=== PATIENT | male | born 1965 | race Caucasian/White ===

== ENCOUNTER → 2021-01-05 09:20 | Outpatient (BNVA) | payer MEDICARE, SELFPAY | PROVIDERS: Visit Provider Family Medicine | DX: Z13.6 Encounter for screening for cardiovascular disorders (principal); R73.09 Other abnormal glucose; R76.8 Other specified abnormal immunological findings in serum; R35.1 Nocturia; I73.9 Peripheral vascular disease, unspecified; F17.219 Nicotine dependence, cigarettes, with unspecified nicotine-induced disorders | CPT/HCPCS: 80053; 80061; 83036; 84153; 85025; 86803; 87522 ==

== ENCOUNTER 2021-04-30 11:22 | Emergency (ER) | payer MEDICARE, SELFPAY ==
[2021-04-30 11:23] VITALS: BP 89/57; PULSE 139; RESP 20; TEMP 37.2; O2SAT 95
--- NOTE | 2021-04-30 11:32 | CTR_ITS ---
PROCEDURE INFORMATION: Exam: CTA Angiogram of the Abdominal Aorta and Bilateral Lower Extremities (Run-off) With IV Contrast Exam date and time: 04/30/2021 11:32 AM Age: 55 years old Clinical indication: Other: Leg bleeding; Prior surgery; Surgery type: Bleeding, from femoral sheath from stent last month; Additional info: Eval for R femoral pseudoaneurysmal hematoma/bleeding, prior femoral sheath from stent last month TECHNIQUE: Imaging protocol: CT angiogram of the abdominal aorta, pelvis and bilateral lower extremities with IV iodinated contrast. 3D rendering (Not supervised by radiologist): MIP and/or 3D reconstructed images were created by the technologist. Total images: 1142 Radiation optimization: All CT scans at this facility use at least one of these dose optimization techniques: automated exposure control; mA and/or kV adjustment per patient size (includes targeted exams where dose is matched to clinical indication); or iterative reconstruction. Contrast material: OMNI 350; Contrast volume: 95 ml; Contrast route: INTRAVENOUS (IV); COMPARISON: No relevant prior studies available. RADIATION DOSE METRICS: Total DLP (mGy-cm): 1303.97 FINDINGS: Aorta: No aortic aneurysm. No aortic dissection. Celiac trunk and mesenteric arteries: No occlusion or significant stenosis. Renal arteries: No occlusion or significant stenosis. Right iliac arteries: No occlusion or significant stenosis. Right femoral/popliteal arteries: Postsurgical changes noted at the left groin with focal enlargement just proximal to vascular grafts measuring 1.3 cm. Adjacent soft tissue thickening, subcutaneous emphysema and vascular clips are seen present. Surgical tract tract extends to overlying skin surface in this area. Multiple unopacified tubular structures representing femoral grafts are present extending from the right groin to the right popliteal region suggesting thrombosed grafts. Adjacent fluid and or hemorrhage is seen tracking with the structures as well as small amounts of air. There is a small irregular area of increased density adjacent to the posteromedial graft in the upper thigh which is felt to represent contrast extravasation, series 3 image 202 to 210, which is being supplied by small branches from the right deep femoral artery. Opacification of right deep femoral artery branches which supply collateral flow and reconstitute a distal small popliteal artery. Right infrapopliteal arteries: No occlusion or significant stenosis. Left iliac arteries: No occlusion or significant stenosis. Left femoral/popliteal arteries: No occlusion or significant stenosis. Left infrapopliteal arteries: No occlusion or significant stenosis. Other arteries: Moderate atherosclerotic disease is evident. Lungs: Trace bibasilar atelectasis or scar. Liver: No mass. Gallbladder and bile ducts: Unremarkable. No calcified stones. No ductal dilation. Pancreas: Unremarkable. No mass. No ductal dilation. Spleen: Normal. No splenomegaly. Adrenals: Normal. No mass. Kidneys and ureters: Normal. No mass. Stomach and bowel: Unremarkable. No obstruction. No mucosal thickening. Appendix: No evidence of appendicitis. Urinary bladder: Unremarkable. No mass. Reproductive: The prostate gland contains benign-appearing calcifications that are likely parenchymal. Intraperitoneal space: Unremarkable. No free air. No significant fluid collection. Lymph nodes: No lymphadenopathy. Bones/joints: No acute fracture. No dislocation. Other findings: Status post aortic bilateral iliac stent grafts. This is opacified. CT/CT angio abd aorta runof 38450 IMPRESSION: 1. Postsurgical changes noted at the left groin with focal enlargement just proximal to vascular grafts measuring 1.3 cm. Adjacent soft tissue thickening, subcutaneous emphysema and vascular clips are seen present. Surgical tract tract extends to overlying skin surface in this area. 2. Multiple unopacified tubular structures representing femoral grafts are present extending from the right groin to the right popliteal region suggesting thrombosed grafts. Adjacent fluid and or hemorrhage is seen tracking with the structures as well as small amounts of air. There is a small irregular area of increased density adjacent to the posteromedial graft in the upper thigh which is felt to represent contrast extravasation, series 3 image 202 to 210, which is being supplied by small branches from the right deep femoral artery. 3. Opacification of right deep femoral artery branches which supply collateral flow and reconstitute a distal small popliteal artery.
[2021-04-30 11:42] VITALS: BP 119/76; PULSE 140; O2SAT 96
[2021-04-30 11:44] LABS: Basophils # 0.1 10^3/uL (0.0-0.1); Basophils % 0.3 %; Eosinophils # 0.1 10^3/uL (0.0-0.8); Eosinophils % 0.2 %; Hematocrit 32.6 % (42.0-52.0); Hemoglobin 11.1 g/dL (11.7-16.6); Lymphocytes # 0.9 10^3/uL (0.8-4.8); Lymphocytes % 2.9 %; Mean Corpuscular Hemoglobin 29.1 pg (28.0-34.0); Mean Corpuscular Volume 85.6 fl (80-94); Mean Platelet Volume 10.9 fL (7.4-10.4); Monocytes # 1.7 10^3/uL (0.2-0.9); Monocytes % 5.4 %; Neutrophils # 28.35 10^3/uL (1.8-7.7); Neutrophils % 90.4 %; Nucleated Red Blood Cells % 0 %; Platelet Count 357 10^3/cmm (130-400); Red Blood Count 3.81 10^6/uL (4.1-5.3); Red Cell Distribution Width 13.6 % (12.1-15.1)
--- NOTE | 2021-04-30 11:46 | ED_ITS ---
HPI - General Adult General: Chief complaint: Wound/Laceration Stated complaint: BLEEDING FROM FEMORAL SITE Time Seen by Provider: 04/30/21 11:23 History of Present Illness: Patient is a 55-year-old male with a history of PAD angioplasty with R femoral sheath placement at [facility] in 03/2021 presents emergency room with concerns of right groin bleeding x1 day. Patient tells me this morning at 8 AM when he was sitting down suddenly his right groin started bleeding heavily. Patient tells me that he previously had a femoral sheath in the right groin. The bleeding went on for about an hour before it stopped. Patient called EMS by time EMS arrived at 11 AM, the bleeding has stopped. Patient was noted to be tachycardic to the 150s in route by EMS. Onset:8am Duration:1 hr Location:home Severity:severe Associated symptoms: Deny chest pain, dyspnea, nausea, rash, palpitations or vomiting Review of Systems Const: Denies: fever(s) or chills Eyes: Denies: change in vision ENMT: Denies: mouth pain Card: Denies: chest pain or palpitations Resp: Denies: dyspnea or non-productive cough GI: Denies: abdominal pain, nausea, vomiting or diarrhea : Denies: dysuria Musc: Reports: other (+R groin bleeding); Denies: extremity pain Skin/Breast: Denies: rash or new lesions Neuro: Denies: weakness in extremities Psych: Reports: other (Normal mood) Henri/Lymph: Denies: easy bruising PFSH ED PFSH: Medical History Elevated hemoglobin A1c Hepatitis C antibody test positive PAD (peripheral artery disease) Restless leg syndrome Surgical History S/P peripheral artery angioplasty Family History Mother Diabetes Heart disease Father Cancer esophageal cancer Social History Smoking and tobacco status: current every day smoker Second hand smoke exposure: No Alcohol intake: former Adopted: No Caregiver/support person: No Lives independently: Yes Housing: House Marital status: Number of children: 1 Highest education level completed: 11th Grade service: No Current occupational status: disabled Pets and animals: Yes Pets & animals: dog(s) History of recent travel: No Current gender identity: Male Physical Exam Const: COMMON NORMALS: alert HENMT: COMMON NORMALS: atraumatic HEAD & SCALP: atraumatic MOUTH: moist mucous membranes not abnormal Eye: COMMON NORMALS: EOMs intact bilaterally and conjunctivae normal CONJUNCTIVA: Yes conjunctivae normal Neck/C-Spine: COMMON NORMALS: full ROM and supple Resp: COMMON NORMALS: normal respiratory effort and clear to auscultation bilaterally AUSCULTATION: clear to auscultation bilaterally Cardio: RATE: tachycardic GI: COMMON NORMALS: Soft to palpation and non-tender PALPATION: Yes Soft to palpation Extremity: COMMON NORMALS: full ROM OTHER: +R groin/inner groin sites with clots, no active bleeding or palpable hematoma Neuro: SENSORIUM/ORIENTATION: Yes alert MOTOR EXAM: No Abnormal motor strength present and Other motor observations present (no focal motor deficits) Psych: COMMON NORMALS: speech normal SPEECH: Yes normal speech MOOD & AFFECT: Yes euthymic mood Procedures Laceration Laceration 1: Site: other (R groin) Side (If applicable): right Size (cm): 2 Description: other (skin erosion with clots on multiple sites) Depth: simple, single layer Local Anesthetic: lidocaine 1% and with epi Amount of anesthesia used (mL): 5 Pre-repair: wound explored and irrigated extensively Skin layer closed with: other (prolene) Size (cm): other (1-0) Number of sutures: 3 Technique: other (figures of eight on the site of previous bleeding) Course Vital Signs: Vital signs: Vital Signs Temperature 99.6 F 04/30/21 14:09 Pulse Rate 95 04/30/21 15:47 Respiratory Rate 20 H 04/30/21 11:23 Blood Pressure 96/52 04/30/21 15:47 Pulse Oximetry 96 04/30/21 15:47 [facility] - General Adult Medical Decision Making Patient is a 55-year-old male with a history of recent femoral sheath placement at [facility] presenting to emergency room with delayed bleeding. Arrival, patient noted to be tachycardic to the 140s. He is afebrile by oral temperature and rectal temperature With significant delay bleeding, decision was made to meet evaluate for H&H. Patient is noted to have a hemoglobin 11.1 with a baseline of 16.1. Patient is also found to have white count of 31.3. In the setting of tachycardia, this could be early signs of sepsis concerning for possible infected sheath vs reactive leukocytosis to delayed hemorrhage from femoral sheath malfunction. Workup: CBC, BMP, PT/PTT/INR, fibrinogen, CTA run off Intervention: 3L of IVF, vancomycin, cefepime, TXA and aminocapric acid Given concerns for possible rebleeding, decision was made in conjunction with patient to close the skin site of previous bleeding. I placed 3 figure of 8 sutures at the site of the femoral sheath. Patient is noted to have a white count of 30 K in the setting of tachycardia, evaluate for graft infection versus thrombosis.CTA of the lower extremity showed grafts thrombosis with few foci of air concerning for possible sheath infection. Patient received vancomycin, cefepime, and clindamycin. Patient will be transferred to outside hospital for further management of sheath infection with thrombosis. Case was discussed with Dr. Colon from [facility] vascular surgery team who agreed with the transfer to [facility] for evaluation of femoral sheath infection and thrombosis. Disposition: Transfer to outside hospital Lab Data : 04/30/21 11:06 04/30/21 11:06 Radiology Impressions Aorta w/Runoff CTA 04/30/21 11:32 IMPRESSION: 1. Postsurgical changes noted at the left groin with focal enlargement just proximal to vascular grafts measuring 1.3 cm. Adjacent soft tissue thickening, subcutaneous emphysema and vascular clips are seen present. Surgical tract tract extends to overlying skin surface in this area. 2. Multiple unopacified tubular structures representing femoral grafts are present extending from the right groin to the right popliteal region suggesting thrombosed grafts. Adjacent fluid and or hemorrhage is seen tracking with the structures as well as small amounts of air. There is a small irregular area of increased density adjacent to the posteromedial graft in the upper thigh which is felt to represent contrast extravasation, series 3 image 202 to 210, which is being supplied by small branches from the right deep femoral artery. 3. Opacification of right deep femoral artery branches which supply collateral flow and reconstitute a distal small popliteal artery. ADDENDUM: 04/30/21 1347 THIS REPORT CONTAINS FINDINGS THAT MAY BE CRITICAL TO PATIENT CARE. The findings were verbally communicated via telephone conference at 1:46 PM METEOROLOGICAL TECHNICIAN on 04/30/2021 with PANCHO CRUZ. The findings were acknowledged and understood. Laboratory Results WBC 31.3 10^3/uL (4.0-10.0) H* 04/30/21 11:06 RBC 3.81 10^6/uL (4.1-5.3) L 04/30/21 11:06 Hgb 11.1 g/dL (11.7-16.6) L 04/30/21 11:06 Hct 32.6 % (42.0-52.0) L 04/30/21 11:06 MCV 85.6 fl (80-94) 04/30/21 11:06 MCH 29.1 pg (28.0-34.0) 04/30/21 11:06 MCHC 34.0 g/dL (30.0-36.0) 04/30/21 11:06 RDW 13.6 % (12.1-15.1) 04/30/21 11:06 Plt Count 357 10^3/cmm (130-400) 04/30/21 11:06 MPV 10.9 fL (7.4-10.4) H 04/30/21 11:06 Neut % (Auto) 90.4 % 04/30/21 11:06 Lymph % (Auto) 2.9 % 04/30/21 11:06 Crawford % (Auto) 5.4 % 04/30/21 11:06 Eos % (Auto) 0.2 % 04/30/21 11:06 Baso % (Auto) 0.3 % 04/30/21 11:06 Neut # (Auto) 28.35 10^3/uL (1.8-7.7) H 04/30/21 11:06 Lymph # (Auto) 0.9 10^3/uL (0.8-4.8) 04/30/21 11:06 Crawford # (Auto) 1.7 10^3/uL (0.2-0.9) H 04/30/21 11:06 Eos # (Auto) 0.1 10^3/uL (0.0-0.8) 04/30/21 11:06 Baso # (Auto) 0.1 10^3/uL (0.0-0.1) 04/30/21 11:06 Nucleated RBC % (auto) 0 % 04/30/21 11:06 Nucleated RBCs # 0.0 /100WBC 04/30/21 11:06 PT 14.80 SECONDS (12.1-14.9) 04/30/21 11:06 INR 1.13 (0.8-1.2) 04/30/21 11:06 APTT 34.5 SECONDS (23.9-36.7) 04/30/21 11:06 Fibrinogen 886 mg/dL (174-498) H 04/30/21 11:06 Sodium 134 mmol/L (136-145) L 04/30/21 11:06 Potassium 3.4 mmol/L (3.5-5.1) L 04/30/21 11:06 Chloride 100 mmol/L (98-107) 04/30/21 11:06 Carbon Dioxide 20 mmol/L (22-29) L 04/30/21 11:06 Anion Gap 17.4 (5-19) 04/30/21 11:06 BUN 10 mg/dL (6-20) 04/30/21 11:06 Creatinine 0.7 mg/dL (0.7-1.2) 04/30/21 11:06 GFR Calculation 116.2 mL/min (90-130) 04/30/21 11:06 Glucose 141 mg/dL (65-115) H 04/30/21 11:06 Calculated Osmolality 279 mOsm/kg (285-295) L 04/30/21 11:06 Lactate 2.6 mmol/L (0.5-2.2) H 04/30/21 13:14 Calcium 8.4 mg/dL (8.5-10.5) L 04/30/21 11:06 SARS-CoV-2 Ag (Rapid) Negative (Negative) 04/30/21 13:11 Imaging Data Other Imaging: Radiologist's impression: [address] [place] [address] CT Scan Report Signed Patient: Jeison Hart Unit #: [id number] : 1965 Age/Sex: 55 / M ADM Date: 04/30/21 Loc: ER Room/Bed: Attending Dr: Ordering Provider/Ordering MD: Pancho Cruz MD Date of Service: 04/30/21 Procedure(s): CT angio abd aorta runof 80508 Accession Number(s): [id number] Report Number: [id number] PROCEDURE INFORMATION: Exam: CTA Angiogram of the Abdominal Aorta and Bilateral Lower Extremities (Run-off) With IV Contrast Exam date and time: 04/30/2021 11:32 AM Age: 55 years old Clinical indication: Other: Leg bleeding; Prior surgery; Surgery type: Bleeding, from femoral sheath from stent last month; Additional info: Eval for R femoral pseudoaneurysmal hematoma/bleeding, prior femoral sheath from stent last month TECHNIQUE: Imaging protocol: CT angiogram of the abdominal aorta, pelvis and bilateral lower extremities with IV iodinated contrast. 3D rendering (Not supervised by radiologist): MIP and/or 3D reconstructed images were created by the technologist. Total images: 1142 Radiation optimization: All CT scans at this facility use at least one of these dose optimization techniques: automated exposure control; mA and/or kV adjustment per patient size (includes targeted exams where dose is matched to clinical indication); or iterative reconstruction. Contrast material: OMNI 350; Contrast volume: 95 ml; Contrast route: INTRAVENOUS (IV);? COMPARISON: No relevant prior studies available. RADIATION DOSE METRICS: Total DLP (mGy-cm): 1303.97 FINDINGS: Aorta: No aortic aneurysm. No aortic dissection.? Celiac trunk and mesenteric arteries: No occlusion or significant stenosis.? Renal arteries: No occlusion or significant stenosis.? Right iliac arteries: No occlusion or significant stenosis.? Right femoral/popliteal arteries: Postsurgical changes noted at the left groin with focal enlargement just proximal to vascular grafts measuring 1.3 cm. Adjacent soft tissue thickening, subcutaneous emphysema and vascular clips are seen present. Surgical tract tract extends to overlying skin surface in this area. Multiple unopacified tubular structures representing femoral grafts are present extending from the right groin to the right popliteal region suggesting thrombosed grafts. Adjacent fluid and or hemorrhage is seen tracking with the structures as well as small amounts of air. There is a small irregular area of increased density adjacent to the posteromedial graft in the upper thigh which is felt to represent contrast extravasation, series 3 image 202 to 210, which is being supplied by small branches from the right deep femoral artery. Opacification of right deep femoral artery branches which supply collateral flow and reconstitute a distal small popliteal artery. Right infrapopliteal arteries: No occlusion or significant stenosis.? Left iliac arteries: No occlusion or significant stenosis.? Left femoral/popliteal arteries: No occlusion or significant stenosis.? Left infrapopliteal arteries: No occlusion or significant stenosis.? Other arteries: Moderate atherosclerotic disease is evident. Lungs: Trace bibasilar atelectasis or scar. Liver: No mass. Gallbladder and bile ducts: Unremarkable. No calcified stones. No ductal dilation.? Pancreas: Unremarkable. No mass. No ductal dilation.? Spleen: Normal. No splenomegaly.? Adrenals: Normal. No mass.? Kidneys and ureters: Normal. No mass.? Stomach and bowel: Unremarkable. No obstruction. No mucosal thickening.? Appendix: No evidence of appendicitis.? Urinary bladder: Unremarkable. No mass.? Reproductive: The prostate gland contains benign-appearing calcifications that are likely parenchymal. Intraperitoneal space: Unremarkable. No free air. No significant fluid collection.? Lymph nodes: No lymphadenopathy. Bones/joints: No acute fracture. No dislocation.? Other findings: Status post aortic bilateral iliac stent grafts. This is opacified. CT/CT angio abd aorta runof 22766 IMPRESSION: 1. Postsurgical changes noted at the left groin with focal enlargement just proximal to vascular grafts measuring 1.3 cm. Adjacent soft tissue thickening, subcutaneous emphysema and vascular clips are seen present. Surgical tract tract extends to overlying skin surface in this area. 2. Multiple unopacified tubular structures representing femoral grafts are present extending from the right groin to the right popliteal region suggesting thrombosed grafts. Adjacent fluid and or hemorrhage is seen tracking with the structures as well as small amounts of air. There is a small irregular area of increased density adjacent to the posteromedial graft in the upper thigh which is felt to represent contrast extravasation, series 3 image 202 to 210, which is being supplied by small branches from the right deep femoral artery. 3. Opacification of right deep femoral artery branches which supply collateral flow and reconstitute a distal small popliteal artery. ? Dictated By: Jayden Bolaños MD Signed By: Jayden Bolaños MD Signed Date/Time: 04/30/21 0846 DD/ 1132 Discharge Plan Discharge Patient Disposition: Transfer to ED Clinical Impression: Bleeding, Infection of graft, Hemorrhage due to vascular prosthetic devices, implants and grafts, initial encounter Condition: Stable Prescriptions: No Action aspirin 81 mg tablet,chewable 81 mg PO DAILY 0RF gabapentin 300 mg capsule 300 mg PO BID 0RF clopidogrel 75 mg tablet 75 mg PO DAILY 0RF Coding Level of Care Code ED Ip Litigation Associate for Gifty Fwd Exam Comprehensive
--- NOTE | 2021-04-30 11:49 | ECG_ITS ---
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
[2021-04-30 11:57] LABS: INR 1.13 (0.8-1.2)
[2021-04-30 11:58] LABS: Partial Thromboplastin Time 34.5 SECONDS (23.9-36.7)
[2021-04-30 12:03] LABS: White Blood Count 31.3 10^3/uL (4.0-10.0)
[2021-04-30 12:06] LABS: Anion Gap 17.4 (5-19); Blood Urea Nitrogen 10 mg/dL (6-20); Calcium 8.4 mg/dL (8.5-10.5); Carbon Dioxide 20 mmol/L (22-29); Chloride 100 mmol/L (98-107); Glomerular Filtration Rate 116.2 mL/min (90-130); Glucose 141 mg/dL (65-115); Osmolality Calculated 279 mOsm/kg (285-295); Potassium 3.4 mmol/L (3.5-5.1); Sodium 134 mmol/L (136-145)
[2021-04-30] MEDS: iohexol 350 mg/mL 100 mL Btl IV (12:41)
[2021-04-30] MEDS: sodium chloride 0.9% 1,000 ML 999 ML IV ×3 (12:55→15:09)
[2021-04-30] MEDS: cefepime 1,000 MG in sodium chloride 0.9% (plus) 50 ML 100 MG IV (13:07)
[2021-04-30 13:21] LABS: Fibrinogen 886 mg/dL (174-498)
[2021-04-30 13:38] LABS: Lactate (Lactic Acid level) 2.6 mmol/L (0.5-2.2)
[2021-04-30] MEDS: vancomycin 1,000 MG in sodium chloride 0.9% 250 ML 250 MG IV (13:48)
[2021-04-30 13:57] LABS: SARS Covid-2 Antigen Negative (Negative)
[2021-04-30] MEDS: clindamycin 600 MG/50 ML PREMIX 100 MG IV (14:03)
[2021-04-30 14:09] VITALS: BP 117/64; PULSE 111; TEMP 37.6; O2SAT 95
[2021-04-30 15:47] VITALS: BP 96/52; PULSE 95; O2SAT 96
[2021-04-30 18:30] VITALS: BP 109/63; PULSE 91; O2SAT 94
[2021-04-30 19:44] VITALS: RESP 18
[2021-04-30] MEDS: morphine 4 mg/mL SDV 1 mL IVP (19:44)
== END 2021-04-30 19:50 ==
PROVIDERS: Emergency Provider Emergency Medicine
DX: T82.838A Hemorrhage due to vascular prosthetic devices, implants and grafts, initial encounter (principal); T82.7XXA Infection and inflammatory reaction due to other cardiac and vascular devices, implants and grafts, initial encounter; Z79.82 Long term (current) use of aspirin; Z79.02 Long term (current) use of antithrombotics/antiplatelets; Z86.19 Personal history of other infectious and parasitic diseases; F17.210 Nicotine dependence, cigarettes, uncomplicated
CPT/HCPCS: 12001; 36415; 75635; 80048; 83605; 85025; 85384; 85610; 85730; 87040; 87426; 93005; 96365; 96367; 96375; 99285; J0692; J2270; J3370; J3490; J7030; J7050; Q9967

== ENCOUNTER 2021-05-11 16:38 | Emergency (ER) | payer MEDICARE, SELFPAY ==
--- NOTE | 2021-05-11 17:00 | W.ED.GENADLT ---
HPI - General Adult General: Chief complaint: General Medical Stated complaint: BLEEDING FROM PICC LINE Time Seen by Provider: 05/11/21 16:59 History of Present Illness: Mr Hart is a 56-year-old gentleman with complex past history. He has a history of femoropopliteal bypass with subsequently returning to this emergency department on 04/30/2021 and transferred out when he was found to have thrombosed and infected grafts. He was transferred to [place] and apparently had surgical procedures there to remove the infection. He is currently at a care home facility/rehab facility for continued IV antibiotics through a PICC line. He reports feeling overall improved and denies any medical complaints however was sent here as the facility was unable to get his PICC line to stop bleeding. Endorses that this stopped at about 4 PM. He denies associated pain, lightheadedness, chest pain, shortness of breath, or any sensory/circulatory/motor changes in that extremity. Unclear how much blood loss is estimated though estimated to be mild amount. Course improved with clamping of the tubing no other specific changes in health, exacerbating, relieving factors identified. Onset (ago): minute(s) Severity: mild Review of Systems General: Reports: 10 or more systems reviewed and unremarkable except in HPI and below PFSH ED PFSH: Medical History Elevated hemoglobin A1c Hepatitis C antibody test positive PAD (peripheral artery disease) Restless leg syndrome Surgical History S/P peripheral artery angioplasty Family History Mother Diabetes Heart disease Father Cancer esophageal cancer Social History Smoking and tobacco status: current every day smoker Second hand smoke exposure: No Alcohol intake: former Adopted: No Caregiver/support person: No Lives independently: Yes Housing: House Marital status: Number of children: 1 Highest education level completed: 11th Grade service: No Current occupational status: disabled Pets and animals: Yes Pets & animals: dog(s) History of recent travel: No Current gender identity: Male Physical Exam Const: COMMON NORMALS: alert GENERAL APPEARANCE: cooperative and well developed HENMT: COMMON NORMALS: normocephalic and atraumatic HEAD & SCALP: normocephalic and atraumatic Eye: COMMON NORMALS: conjunctivae normal CONJUNCTIVA: Yes conjunctivae normal SCLERA: sclerae normal Neck/C-Spine: COMMON NORMALS: supple GENERAL: Yes trachea midline Resp: COMMON NORMALS: normal respiratory effort and clear to auscultation bilaterally EFFORT & INSPECTION: Yes able to speak in complete sentences AUSCULTATION: clear to auscultation bilaterally Cardio: COMMON NORMALS: regular rate and regular rhythm RATE: regular rate RHYTHM: regular rhythm OTHER: Distal CMS intact of involved extremity GI: COMMON NORMALS: Soft to palpation PALPATION: Yes Soft to palpation and No Tenderness to palpation present (GI) PERCUSSION: normal to percussion Extremity: NARRATIVE EXTREMITY EXAM: Right groin wound VAC in place. GENERAL: Yes normal exam except as noted and No edema Neuro: COMMON NORMALS: moves all extremities SENSORIUM/ORIENTATION: Yes alert and No Orientation impaired Psych: COMMON NORMALS: mental status grossly normal and Normal thought process present THOUGHT PROCESS: Normal thought process present Course ED course: - Patient was seen and evaluated by me while on EMS cot as no room is available - Vital signs obtained - Initial evaluation notable for acute distress, nontoxic appearance. - I examined the patient's PICC line. There is currently a green antimicrobial Directly attached to the pink end of the tubing. Dressing appears otherwise intact and the patient denies that this has been pulled out at all and does not appear to be pulled out. It appears that the end of the tubing is missing a needleless connector as should be in place. this may have been accidentally removed when disconnecting IV infusion of antibiotics previously. One was placed by staff midwife/apprenticeship director and the line was flushed without recurrent bleeding or apparent complication. - Upon serial reexamination after treatment the patient was improved - Based on patient history, evaluation, labs, and imaging as interpreted the most likely cause of the patient's condition is bleeding from PICC line due to improper removal of needleless connector which was fixed. - The results of ED evaluation were discussed with the patient. I discussedfollowup plan and return precautions. The patient verbalized understanding and felt safe for discharge. - Patient discharged in satisfactory condition back to [facility]. Note: Click bubbles or prepopulated sauer in note writing are used for assistance with data collection and billing and are inherently more limited than narrative and other text portions of this note. Please use narrative for additional clinical history and defer to narrative/free test for any case of contradictory information. If information appears in only free text or click bubble it should be considered present or absent as reported. Please contact note marketing underwriter for clarifications of clinical information or contradictory information. MDM is a brief summary, contradictory or erroneous seeming information should be clarified and full note should be reviewed. Vital Signs: Vital signs: Vital Signs Temperature 98.5 F 05/11/21 17:16 Pulse Rate 102 H 05/11/21 17:16 Respiratory Rate 20 H 05/11/21 17:16 Blood Pressure 134/70 05/11/21 17:16 Pulse Oximetry 99 05/11/21 17:16 MDM - General Adult Medical Decision Making 56-year-old gentleman with complex history currently at rehab facility for IV antibiotics secondary to infected femoropopliteal bypass presenting with bleeding from PICC line. Patient denies complaints and is well-appearing. It appears that the needleless connector was improperly removed and this was not recognized. One was placed and no recurrent bleeding occurred. Catheter flushed without difficulty. Satisfactory for transfer back to rehab facility/SNF. Medical Records I reviewed the patient's medical records. Lab Data I reviewed the patient's lab results. Discharge Plan Discharge Patient Disposition: [facility] Clinical Impression: Bleeding from PICC line Condition: Stable Discharge Orders: Discharge ED (Routine); Ordered 05/11/21 Ordered By: Gideon Betancur Discharge Diet: Usual diet Discharge Activity: Resume usual activity Patient Instructions: How to Care for Your PICC (Peripherally Inserted Central Catheter) (ED) Activity Restrictions/Additional Instructions: Thank you for visiting the emergency department. You were seen and evaluated for bleeding from PICC line. I believe that the PICC line was missing Which was replaced. This likely explains the difficulty with bleeding control. Please care for your PICC line as previously instructed and continue antibiotics. If required, you do need heparin flush as this was not flushed with heparin in the emergency department. Please return to the emergency department for anything that you are concerned about and feel needs emergency department evaluation. Coding Level of Care Code ED Director [employer] [facility] [place]
[2021-05-11 17:16] VITALS: BP 134/70; PULSE 102; RESP 20; TEMP 36.9; O2SAT 99; BMI 24.7
== END 2021-05-11 17:26 ==
PROVIDERS: Emergency Provider Emergency Medicine
DX: T82.838A Hemorrhage due to vascular prosthetic devices, implants and grafts, initial encounter (principal); Z86.19 Personal history of other infectious and parasitic diseases; F17.210 Nicotine dependence, cigarettes, uncomplicated
CPT/HCPCS: 99281

== ENCOUNTER 2021-05-12 15:08 | Outpatient (CLI) | payer MEDICARE, SELFPAY ==
[2021-05-12 16:08] LABS: Vancomycin Trough 42.8 ug/mL (10-15)
== END 2021-05-12 15:09 | disposition home or self-care (01) ==
PROVIDERS: Visit Provider Family Medicine
DX: T82.7XXD Infection and inflammatory reaction due to other cardiac and vascular devices, implants and grafts, subsequent encounter (principal)
CPT/HCPCS: 80202

== ENCOUNTER 2021-05-12 18:01 | Emergency (ER) | payer MEDICARE, SELFPAY ==
[2021-05-12] VITALS (11 sets, daily range): BP systolic 64–125; BP diastolic 47–80; PULSE 112–147; RESP 17–32; TEMP 36.2–36.8; O2SAT 96–100; BMI 26.3
--- NOTE | 2021-05-12 18:14 | CTR_ITS ---
PROCEDURE INFORMATION: Exam: CTA Angiogram of the Abdominal Aorta and Bilateral Lower Extremities (Run-off) With IV Contrast Exam date and time: 05/12/2021 6:14 PM Age: 56 years old Clinical indication: Injury or trauma; Other: Drain pulled out; Bleeding/hemorrhage and wound, open; Without foreign body; Upper leg; Right; Prior surgery; Surgery date: <1 month; Surgery type: Recent vascular procedure and debridement at another facility; Patient HX: Accidentally pulled out drain; Additional info: Post op hemorrhage TECHNIQUE: Imaging protocol: CT angiogram of the abdominal aorta, pelvis and bilateral lower extremities with IV iodinated contrast. 3D rendering (Not supervised by radiologist): MIP and/or 3D reconstructed images were created by the technologist. Radiation optimization: All CT scans at this facility use at least one of these dose optimization techniques: automated exposure control; mA and/or kV adjustment per patient size (includes targeted exams where dose is matched to clinical indication); or iterative reconstruction. Contrast material: VISI 320; Contrast volume: 95 ml; Contrast route: INTRAVENOUS (IV); COMPARISON: CT angio abd aorta runof [id number] 04/30/2021 12:35 PM RADIATION DOSE METRICS: Total DLP (mGy-cm): 1456.49 FINDINGS: Tubes, catheters and devices: A balloon bladder catheter is present. Aorta: No aortic aneurysm. No aortic dissection. Celiac trunk and mesenteric arteries: No occlusion or significant stenosis. Renal arteries: No occlusion or significant stenosis. Right iliac arteries: No occlusion or significant stenosis. Right femoral/popliteal arteries: The previously visualized grafts in the right thigh have been removed and arterial flow to the right lower extremity is through multiple small caliber branches from the profundal femora such and proximal right femoral artery. The right popliteal artery is very small in caliber. Right infrapopliteal arteries: There is a three-vessel runoff with tiny caliber vessels that are weakly enhancing but the dominant flow is from the right tibialis posterior. Left iliac arteries: There is a satisfactory appearance of the bifurcated abdominal aortic stent extending into both common iliac arteries. Left-sided stent also involves the proximal left external iliac artery. Left femoral/popliteal arteries: No occlusion or significant stenosis. Left infrapopliteal arteries: In the left lower leg, there is a three-vessel runoff with flow to the left lower extremity mostly via the posterior tibial artery with tiny caliber peroneal artery and enhancement of only the proximal half of the left tibialis anterior artery. Lungs: There is subpleural atelectasis of the dependent portions of the lungs. There are unchanged multiple calcified granulomas, reticular scarring and mild atelectasis in the lung bases. Unchanged pleural base soft tissue nodules right lung base are noted including the 9 mm nodule series 3, image 4 and the 5 mm nodule image 8. Liver: No mass. Gallbladder and bile ducts: The gallbladder is contracted/decompressed. There is no common bile duct dilation. Pancreas: The pancreas is normal. Spleen: Normal. No splenomegaly. Adrenals: The adrenal glands are normal. Kidneys and ureters: There is no evidence of renal calcifications. There is no evidence of hydronephrosis. Bilateral extrarenal pelves are present. Stomach and bowel: There is moderately excessive colonic stool content. There is no evidence of colitis/diverticulitis. There is no evidence of intestinal perforation or obstruction. Appendix: A normal appendix is identified. Urinary bladder: The bladder is decompressed. Reproductive: The prostate demonstrates moderate nonspecific enlargement. The seminal vesicles are normal. Intraperitoneal space: Unremarkable. No free air. No significant fluid collection. Lymph nodes: No lymphadenopathy. Bones/joints: No acute fracture. No dislocation. 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 There is abundant fluid and induration of the subcutaneous fat right groin compatible with postoperative changes and small hematoma that appears may communicate with the skin surface measuring 5.1 x 3.0 cm in size. There is diffuse soft tissue edema in bilateral lower legs right greater than left. There is a fat-containing umbilical hernia. There are postoperative changes in the right groin with an open wound and gas extending towards the skin surface. Other findings: Previously visualized fluid collection in the right thigh along the now removed femoral graft unchanged in size measuring 3.0 x 2.4 cm at its largest transverse position on series 3, image 270. Superficial femoral artery is occluded. CT/CT angio abd aorta runof [id number] IMPRESSION: 1. 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 2. There is abundant fluid and induration of the subcutaneous fat right groin compatible with postoperative changes and small hematoma that appears may communicate with the skin surface measuring 5.1 x 3.0 cm in size. Recent postoperative changes in the right groin are noted with subcutaneous emphysema and open wound. 3. The previously visualized grafts in the right thigh have been removed and arterial flow to the right lower extremity is through multiple small caliber branches from the profundal femora such and proximal right femoral artery. Superficial femoral artery is occluded. 4. In the left lower leg, there is a three-vessel runoff with flow to the left lower extremity mostly via the posterior tibial artery with tiny caliber peroneal artery and enhancement of only the proximal half of the left tibialis anterior artery. 5. There are unchanged right basilar pulmonary nodules.
--- NOTE | 2021-05-12 18:17 | ED_ITS ---
HPI - Trauma General: Chief Complaint: Trauma Stated Complaint: UNCONTROLLABLE BLEEDING Time Seen by Provider: 05/12/21 18:06 Source: patient and EMS History of Present Illness: 56 year old male presenting from a residential. Evidently, he had a clotted and infected graft in the right groin, and was sent to an outside facility for vascular intervention a couple of weeks ago. He had a wound VAC at the residential. Evidently in the residential, the wound VAC came out, and the patient bled from his incision. On scene, EMS found quite a bit of blood, and the patient continued to bleed in the ambulance on the way here. He presented pale, diaphoretic, with a blood pressure of 65 systolic, and a heart rate of 140. MD complaint: other Review of Systems General: Reports: ROS unobtainable due to medical condition PFS ED PFSH: Medical History Elevated hemoglobin A1c Hepatitis C antibody test positive PAD (peripheral artery disease) Restless leg syndrome Surgical History S/P peripheral artery angioplasty Family History Mother Diabetes Heart disease Father Cancer esophageal cancer Social History Smoking and tobacco status: current every day smoker Second hand smoke exposure: No Alcohol intake: former Adopted: No Caregiver/support person: No Lives independently: Yes Housing: House Marital status: Number of children: 1 Highest education level completed: 11th Grade service: No Current occupational status: disabled Pets and animals: Yes Pets & animals: dog(s) History of recent travel: No Current gender identity: Male Physical Exam Const: GENERAL APPEARANCE: cooperative, ill appearing, frail appearing and diaphoretic HENMT: COMMON NORMALS: normocephalic, atraumatic and Normal external nose present HEAD & SCALP: normocephalic and atraumatic NOSE: Normal external nose present Eye: COMMON NORMALS: Equal, round and reactive pupils present and EOMs intact bilaterally PUPIL: Yes Equal, round and reactive pupils present Chest: COMMONS NORMALS: normal inspection of the chest Resp: COMMON NORMALS: normal respiratory effort, No use of accessory muscles and clear to auscultation bilaterally AUSCULTATION: clear to auscultation bilaterally Cardio: COMMON NORMALS: regular rhythm RATE: tachycardic RHYTHM: regular rhythm GI: COMMON NORMALS: Normal to inspection, nondistended, normoactive bowel sounds present, Soft to palpation and non-tender PALPATION: Yes Soft to palpation Extremity: NARRATIVE EXTREMITY EXAM: Exam the right lower extremity reveals an anterior upper thigh incision with sutures in place. There is oozing blood from the wound site. Bleeding has slowed currently. Incision looks clean otherwise. Neuro: RADHA COMA SCALE: document GCS findings Radha coma scale eye opening: Spontaneous [place] coma scale verbal response: Confused Radha coma scale motor response: Obey commands Radha coma scale total score: 14 Skin: NARRATIVE SKIN EXAM: See above Course Vital Signs: Vital signs: Vital Signs Temperature 97.5 F L 05/12/21 21:09 Pulse Rate 122 H 05/12/21 21:09 Respiratory Rate 22 H 05/12/21 21:09 Blood Pressure 115/79 05/12/21 21:09 Pulse Oximetry 98 05/12/21 21:09 MDM - Trauma Medical Decision Making Patient presents with a pressure device in place over the right groin. This was removed. Small amount of wheezing continues from the operative incision. There is palpable hematoma that does not feel pulsatile. Pressure initially was 65 systolic. It is up to 100 systolic, after 2 L of fluid, 2 units of O-. He is crossed for 2 more units of crossmatched blood, and FFP. His hemoglobin is 7.5. It was 11 2 weeks ago. CTA shows abundant fluid in induration of the subcutaneous fat. There is a hematoma that is 5 x 3 cm. There is pseudoaneurysm in the right groin adjacent to postoperative clips measuring 1.7 x 1.8 cm with active extravasation of contrast. We do not have vascular surgery availability at this hospital. We will attempt transfer. Spoke with with Dr. Colon at [facility]. He accepts transfer of the patient there. Lab Data : 05/12/21 18:15 05/12/21 18:15 Radiology Impressions Aorta w/Runoff CTA 05/12/21 18:14 IMPRESSION: 1. 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 2. There is abundant fluid and induration of the subcutaneous fat right groin compatible with postoperative changes and small hematoma that appears may communicate with the skin surface measuring 5.1 x 3.0 cm in size. Recent postoperative changes in the right groin are noted with subcutaneous emphysema and open wound. 3. The previously visualized grafts in the right thigh have been removed and arterial flow to the right lower extremity is through multiple small caliber branches from the profundal femora such and proximal right femoral artery. Superficial femoral artery is occluded. 4. In the left lower leg, there is a three-vessel runoff with flow to the left lower extremity mostly via the posterior tibial artery with tiny caliber peroneal artery and enhancement of only the proximal half of the left tibialis anterior artery. 5. There are unchanged right basilar pulmonary nodules. ADDENDUM: 05/12/211955 THIS REPORT CONTAINS FINDINGS THAT MAY BE CRITICAL TO PATIENT CARE. The findings were verbally communicated via telephone conference with Dr aRscon at 7:55 PM SAMPLE PASTER on 05/12/2021. The findings were acknowledged and understood. Laboratory Results WBC 14.0 10^3/uL (4.0-10.0) H 05/12/21 18:15 RBC 2.52 10^6/uL (4.1-5.3) L 05/12/21 18:15 Hgb 7.5 g/dL (11.7-16.6) L 05/12/21 18:15 Hct 24.6 % (42.0-52.0) L 05/12/21 18:15 MCV 97.6 fl (80-94) H 05/12/21 18:15 MCH 29.8 pg (28.0-34.0) 05/12/21 18:15 MCHC 30.5 g/dL (30.0-36.0) 05/12/21 18:15 RDW 18.6 % (12.1-15.1) H 05/12/21 18:15 Plt Count 523 10^3/cmm (130-400) H 05/12/21 18:15 MPV 10.6 fL (7.4-10.4) H 05/12/21 18:15 Lymph % (Auto) Not Reportable 05/12/21 18:15 [place] % (Auto) Not Reportable 05/12/21 18:15 Lymph # (Auto) Not Reportable 05/12/21 18:15 [place] # (Auto) Not Reportable 05/12/21 18:15 PT 15.90 SECONDS (12.1-14.9) H 05/12/21 18:20 INR 1.23 (0.8-1.2) H 05/12/21 18:20 APTT 29.2 SECONDS (23.9-36.7) 05/12/21 18:20 Sodium 137 mmol/L (136-145) 05/12/21 18:15 Potassium 3.5 mmol/L (3.5-5.1) 05/12/21 18:15 Chloride 105 mmol/L (98-107) 05/12/21 18:15 Carbon Dioxide 17 mmol/L (22-29) L 05/12/21 18:15 Anion Gap 18.5 (5-19) 05/12/21 18:15 BUN 9 mg/dL (6-20) 05/12/21 18:15 Creatinine 0.9 mg/dL (0.7-1.2) 05/12/21 18:15 GFR Calculation 86.7 mL/min (90-130) L 05/12/21 18:15 Glucose 232 mg/dL (65-115) H 05/12/21 18:15 Calculated Osmolality 290 mOsm/kg (285-295) 05/12/21 18:15 Calcium 8.2 mg/dL (8.5-10.5) L 05/12/21 18:15 Total Bilirubin 0.2 mg/dL (0.15-1.2) 05/12/21 18:15 AST 15 U/L (0-40) 05/12/21 18:15 ALT 14 U/L (0-41) 05/12/21 18:15 Alkaline Phosphatase 53 IU/L (40-130) 05/12/21 18:15 Total Protein 5.0 g/dL (6.6-8.7) L 05/12/21 18:15 Albumin 2.8 g/dL (3.5-5.2) L 05/12/21 18:15 Globulin 2.2 g/dL (1.3-4.6) 05/12/21 18:15 Blood Type A Negative 05/12/21 18:15 Rho(D) Type Negative 05/12/21 18:15 Antibody Screen Negative 05/12/21 18:15 Crossmatch See Detail 05/12/21 18:15 Critical Care Time Critical Care Time: Critical Care Time: Yes Total Critical Care Time: 45 Attestation: This case had a high probability of a clinically significant, sudden, or life threatening deterioration of this patient's condition which required my full and direct attention, intervention and personal management. This does not include any procedures performed. Discharge Plan Discharge Condition: Stable Prescriptions: No Action aspirin 81 mg tablet,chewable 81 mg PO DAILY 0RF gabapentin 300 mg capsule 300 mg PO BID 0RF clopidogrel 75 mg tablet 75 mg PO DAILY 0RF cilostazol 100 mg Tablet 100 mg PO BID 0RF acetaminophen 325 mg Tablet 650 mg PO Q6H PRN (Reason: Pain) 0RF ceftriaxone 2 gram Recon Soln 2 g IV Q24H 0RF metronidazole 500 mg Tablet 500 mg PO TID 0RF vancomycin 1,000 mg Recon Soln 1.75 g PO Q12H 0RF Milk of Magnesia 400 mg/5 mL Suspension 30 ml PO DAILY PRN (Reason: Constipation) 0RF hydrocodone-acetaminophen 7.5-325 mg Tablet 1 tab PO Q6H PRN (Reason: Pain) 0RF nicotine 21 mg/24 hr Patch 24 Hour 1 patch TRANSDERMAL DAILY 0RF Fleet Enema 19-7 gram/118 mL Enema 118 ml [place] DAILY PRN (Reason: Constipation) 0RF bisacodyl 5 mg Tablet 5 mg PO DAILY PRN (Reason: Constipation) 0RF Normal Saline Flush Syringe 3 ml IV .EVERY SHIFT 0RF Rx Instructions: administer before and after IV drug administration as part of [facility] protocol heparin lock flush (porcine) 100 unit/mL Solution 500 unit IV .EVERY SHIFT 0RF metoprolol tartrate 25 mg Tablet 25 mg PO BID 0RF Coding Level of Care Code ED Evaluation Analyst for Chg Fwd Exam Comprehensive
[2021-05-12 18:25] LABS: Hematocrit 24.6 % (42.0-52.0); Hemoglobin 7.5 g/dL (11.7-16.6); Mean Corpuscular HGB Conc 30.5 g/dL (30.0-36.0); Mean Corpuscular Hemoglobin 29.8 pg (28.0-34.0); Mean Corpuscular Volume 97.6 fl (80-94); Mean Platelet Volume 10.6 fL (7.4-10.4); Platelet Count 523 10^3/cmm (130-400); Red Blood Count 2.52 10^6/uL (4.1-5.3); Red Cell Distribution Width 18.6 % (12.1-15.1)
[2021-05-12 18:39] LABS: Alanine Aminotransferase 14 U/L (0-41); Albumin Level 2.8 g/dL (3.5-5.2); Alkaline Phosphatase 53 IU/L (40-130); Anion Gap 18.5 (5-19); Aspartate Amino Transferase 15 U/L (0-40); Blood Urea Nitrogen 9 mg/dL (6-20); Calcium 8.2 mg/dL (8.5-10.5); Carbon Dioxide 17 mmol/L (22-29); Chloride 105 mmol/L (98-107); Globulin 2.2 g/dL (1.3-4.6); Glomerular Filtration Rate 86.7 mL/min (90-130); Glucose 232 mg/dL (65-115); Osmolality Calculated 290 mOsm/kg (285-295); Potassium 3.5 mmol/L (3.5-5.1); Sodium 137 mmol/L (136-145); Total Bilirubin 0.2 mg/dL (0.15-1.2)
[2021-05-12 18:45] LABS: Slide Review Slide Review Perform
[2021-05-12 18:52] LABS: INR 1.23 (0.8-1.2)
[2021-05-12] MEDS: iodixanol 320 mg/mL 100mL Btl IV (18:52)
[2021-05-12 18:53] LABS: Partial Thromboplastin Time 29.2 SECONDS (23.9-36.7)
[2021-05-12] MEDS: sodium chloride 0.9% 100 mL Bag 50 ML IV (19:11)
--- NOTE | 2021-05-12 19:47 | PC.NURSE ---
late entry 1899 bed side report received 1:1 care, blood and TXA infusing. A&OX4, speech clear skin warm and dry 1929 bed linnens changed and montrell care provided. galvan draining clear yellow urine. VSS 1946 blood products complete.
--- NOTE | 2021-05-12 20:59 | PC.NURSE ---
report called to elisha barragan at receiving hospital. all belongings packaged with patient.
== END 2021-05-12 22:07 ==
PROVIDERS: Emergency Medicine; Emergency Provider Emergency Medicine
DX: T85.9XXA Unspecified complication of internal prosthetic device, implant and graft, initial encounter (principal); Z79.82 Long term (current) use of aspirin; Z86.19 Personal history of other infectious and parasitic diseases; F17.210 Nicotine dependence, cigarettes, uncomplicated
CPT/HCPCS: 36430; 75635; 80053; 85025; 85610; 85730; 86850; 86900; 86920; 86927; 87040; 96365; 99285; J0330; J2704; J3010; J3490; P9016; P9017; P9041; P9051; Q9967

== ENCOUNTER 2021-05-21 09:55 | Outpatient (CLI) | payer MEDICARE, SELFPAY ==
[2021-05-21 10:51] LABS: Vancomycin Trough 11.8 ug/mL (10-15)
== END 2021-05-21 09:56 | disposition home or self-care (01) ==
PROVIDERS: Visit Provider Family Medicine
DX: T82.7XXD Infection and inflammatory reaction due to other cardiac and vascular devices, implants and grafts, subsequent encounter (principal)
CPT/HCPCS: 80202

== ENCOUNTER 2021-05-25 14:37 | Outpatient (CLI) | payer MEDICARE, SELFPAY ==
[2021-05-25 15:37] LABS: Vancomycin Trough 26.8 ug/mL (10-15)
== END 2021-05-25 14:38 | disposition home or self-care (01) ==
LOC: LAB 14:39
PROVIDERS: Visit Provider Family Medicine
DX: Z01.89 Encounter for other specified special examinations (principal); Z16.22 Resistance to vancomycin related antibiotics; Z51.81 Encounter for therapeutic drug level monitoring
CPT/HCPCS: 80202

== ENCOUNTER 2021-05-29 07:52 | Outpatient (CLI) | payer MEDICARE, SELFPAY ==
[2021-05-29 08:32] LABS: Vancomycin Trough 9.4 ug/mL (10-15)
[2021-06-01 08:15] LABS: Vancomycin Random 11.4 ug/mL (20.0-40.0)
== END 2021-05-29 07:53 | disposition home or self-care (01) ==
PROVIDERS: Visit Provider Family Medicine
DX: Z01.89 Encounter for other specified special examinations (principal); Z16.22 Resistance to vancomycin related antibiotics; Z51.81 Encounter for therapeutic drug level monitoring; Z79.2 Long term (current) use of antibiotics
CPT/HCPCS: 80202

== ENCOUNTER 2021-06-01 07:56 | Outpatient (CLI) | payer MEDICARE, SELFPAY | END 2021-06-01 07:57 | disposition home or self-care (01) | PROVIDERS: Visit Provider Family Medicine | DX: Z79.899 Other long term (current) drug therapy (principal) | CPT/HCPCS: 80202 ==

== ENCOUNTER 2021-06-01 20:49 | Emergency (ER) | payer MEDICARE, SELFPAY ==
--- NOTE | 2021-06-01 20:55 | W.ED.GENADLT ---
HPI - General Adult General: Stated complaint: PICC LINE CLOGGED Time Seen by Provider: 06/01/21 20:54 Source: patient and EMS Mode of arrival: EMS Limitations: no limitations History of Present Illness: 56-year-old male is here from custodial for occluded PICC line he states they were not able to flush it. He denies any pain he has no redness no fever at the site. Denies any worsening proving factors. Associated symptoms: Deny chest pain, dyspnea, headache(s), nausea, rash or vomiting Review of Systems Const: Denies: fever(s), chills, body aches or change in appetite Eyes: Denies: blurry vision or eye discomfort ENMT: Denies: throat pain or dental pain Card: Denies: chest pain Resp: Denies: dyspnea GI: Denies: abdominal pain, nausea, vomiting or diarrhea : Denies: dysuria Musc: Denies: neck pain or back pain Skin/Breast: Denies: rash Neuro: Denies: headache(s) Psych: Denies: depression Henri/Lymph: Denies: easy bruising All/Imm: Denies: urticaria PFSH ED PFSH: Medical History Elevated hemoglobin A1c Hepatitis C antibody test positive PAD (peripheral artery disease) Restless leg syndrome Surgical History S/P peripheral artery angioplasty Family History Mother Diabetes Heart disease Father Cancer esophageal cancer Social History Smoking and tobacco status: current every day smoker Second hand smoke exposure: No Alcohol intake: former Adopted: No Caregiver/support person: No Lives independently: Yes Housing: House Marital status: Number of children: 1 Highest education level completed: 11th Grade service: No Current occupational status: disabled Pets and animals: Yes Pets & animals: dog(s) History of recent travel: No Current gender identity: Male Physical Exam Const: COMMON NORMALS: no acute distress, patient oriented x3 and healthy appearing HENMT: COMMON NORMALS: normocephalic and atraumatic HEAD & SCALP: normocephalic and atraumatic Eye: COMMON NORMALS: Equal, round and reactive pupils present and EOMs intact bilaterally PUPIL: Yes Equal, round and reactive pupils present Neck/C-Spine: COMMON NORMALS: full ROM and supple Chest: COMMONS NORMALS: normal inspection of the chest and normal palpation of entire chest wall Resp: COMMON NORMALS: normal respiratory effort, No retractions, No use of accessory muscles and clear to auscultation bilaterally AUSCULTATION: clear to auscultation bilaterally Cardio: COMMON NORMALS: regular rate, regular rhythm and No murmurs present (Cardio) RATE: regular rate RHYTHM: regular rhythm GI: COMMON NORMALS: Normal to inspection, nondistended, normoactive bowel sounds present, Soft to palpation, non-tender and no masses PALPATION: Yes Soft to palpation Extremity: COMMON NORMALS: normal to inspection and full ROM Neuro: COMMON NORMALS: patient oriented x3, moves all extremities and no focal motor deficits Psych: COMMON NORMALS: mental status grossly normal, Normal thought process present and cooperative THOUGHT PROCESS: Normal thought process present Skin: COMMON NORMALS: no rashes or lesions noted and no wounds GENERAL SKIN EXAM: no rashes or lesions noted [facility] - General Adult Medical Decision Making 56-year-old male sent here from the custodial stating that his PICC line is occluded. Was able to flush it here with a heparin flush with no difficulty after the heparin flush it flushed well with saline as well we will discharge him back to the custodial. Discharge Plan Discharge Patient Disposition: Home Clinical Impression: Occluded PICC line Condition: Stable Prescriptions: No Action aspirin 81 mg tablet,chewable 81 mg PO DAILY 0RF gabapentin 300 mg capsule 300 mg PO BID 0RF clopidogrel 75 mg tablet 75 mg PO DAILY 0RF cilostazol 100 mg Tablet 100 mg PO BID 0RF acetaminophen 325 mg Tablet 650 mg PO Q6H PRN (Reason: Pain) 0RF ceftriaxone 2 gram Recon Soln 2 g IV Q24H 0RF metronidazole 500 mg Tablet 500 mg PO TID 0RF vancomycin 1,000 mg Recon Soln 1.75 g PO Q12H 0RF Milk of Magnesia 400 mg/5 mL Suspension 30 ml PO DAILY PRN (Reason: Constipation) 0RF hydrocodone-acetaminophen 7.5-325 mg Tablet 1 tab PO Q6H PRN (Reason: Pain) 0RF nicotine 21 mg/24 hr Patch 24 Hour 1 patch TRANSDERMAL DAILY 0RF Fleet Enema 19-7 gram/118 mL Enema 118 ml WA DAILY PRN (Reason: Constipation) 0RF bisacodyl 5 mg Tablet 5 mg PO DAILY PRN (Reason: Constipation) 0RF Normal Saline Flush Syringe 3 ml IV .EVERY SHIFT 0RF Rx Instructions: administer before and after IV drug administration as part of [facility] protocol heparin lock flush (porcine) 100 unit/mL Solution 500 unit IV .EVERY SHIFT 0RF metoprolol tartrate 25 mg Tablet 25 mg PO BID 0RF Discharge Orders: Discharge ED (Routine); Ordered 06/01/21 Ordered By: Sahil Morales Discharge Diet: Advance as tolerated Discharge Activity: Resume usual activity Patient Instructions: How to Care for Your PICC (Peripherally Inserted Central Catheter) (ED) Coding Level of Care Code ED [facility] for [place] [place]
[2021-06-01 21:00] VITALS: PULSE 80; RESP 14; TEMP 36.2
== END 2021-06-01 21:05 | disposition home or self-care (01) ==
LOC: ER 21:00
PROVIDERS: Emergency Provider Emergency Medicine
DX: T82.898A Other specified complication of vascular prosthetic devices, implants and grafts, initial encounter (principal); Z79.82 Long term (current) use of aspirin; Z79.02 Long term (current) use of antithrombotics/antiplatelets; Z86.19 Personal history of other infectious and parasitic diseases; F17.210 Nicotine dependence, cigarettes, uncomplicated
CPT/HCPCS: 99283; J1642

== ENCOUNTER 2021-06-04 09:45 | Outpatient (CLI) | payer MEDICARE, SELFPAY ==
[2021-06-04 10:52] LABS: Vancomycin Random 10.9 ug/mL (20.0-40.0)
== END 2021-06-04 09:46 | disposition home or self-care (01) ==
PROVIDERS: Visit Provider Family Medicine
DX: Z79.899 Other long term (current) drug therapy (principal)
CPT/HCPCS: 80202

== ENCOUNTER 2021-06-09 06:21 | Outpatient (CLI) | payer MEDICARE, SELFPAY ==
[2021-06-09 07:00] LABS: Vancomycin Random 10.9 ug/mL (20.0-40.0)
== END 2021-06-09 06:22 | disposition home or self-care (01) ==
LOC: LAB 06:23
PROVIDERS: Visit Provider Family Medicine
DX: Z79.899 Other long term (current) drug therapy (principal)
CPT/HCPCS: 80202

== ENCOUNTER 2021-06-10 11:00 | Outpatient (CLI) | payer MEDICARE, SELFPAY ==
[2021-06-10 11:42] LABS: Vancomycin Random 19.3 ug/mL (20.0-40.0)
== END 2021-06-10 11:01 | disposition home or self-care (01) ==
PROVIDERS: Visit Provider Family Medicine
DX: Z79.899 Other long term (current) drug therapy (principal)
CPT/HCPCS: 80202

== ENCOUNTER 2021-06-13 07:33 | Outpatient (CLI) | payer MEDICARE, SELFPAY ==
[2021-06-13 08:01] LABS: Vancomycin Random 10.5 ug/mL (20.0-40.0)
== END 2021-06-13 07:34 | disposition home or self-care (01) ==
PROVIDERS: Visit Provider Family Medicine
DX: Z79.899 Other long term (current) drug therapy (principal)
CPT/HCPCS: 80202

== ENCOUNTER → 2021-06-26 15:03 | Outpatient (BNVA) | payer MEDICARE, SELFPAY | PROVIDERS: Visit Provider Family Medicine | DX: I73.9 Peripheral vascular disease, unspecified (principal) | CPT/HCPCS: 80053; 83036; 85025 ==

== ENCOUNTER → 2022-04-27 11:46 | Outpatient (BNVA) | payer MEDICARE, MEDICAID, SELFPAY | PROVIDERS: PCP Family Medicine; Visit Provider Family Medicine | DX: Z13.6 Encounter for screening for cardiovascular disorders (principal); R73.09 Other abnormal glucose; R35.1 Nocturia | CPT/HCPCS: 80053; 80061; 83036; 84153; 85025 ==

== ENCOUNTER 2022-06-05 09:23 | Outpatient (CLI) | payer MEDICARE, MEDICAID, SELFPAY ==
--- NOTE | 2022-06-05 10:45 | CT_ITS ---
WS: [id number] LDCT LUNG CANCER SCREENING TECHNIQUE: Noncontrast CT of the chest with coronal and sagittal reformatted images. CLINICAL INFORMATION: screening COMPARISON: CT 2009 DLP: 84.37 mGy.cm DIvol: Mean CTDIvol: 1.60 (mGy) All CT scans at [facility] use at least one of these dose optimization techniques: automat ed exposure control; mA and/or kV adjustment per patient size (includes targeted exams where dose is matched to clinical indication); or iterative reconstruction. FINDINGS:Small 3 to 4 mm noncalcified nodule RIGHT upper lobe. Noncalcified nodule RIGHT lower lobe l aterally measuring 6 mm. Partially calcified nodule subpleural RIGHT lower lobe. Small noncalcified n odules LEFT fissure. Subpleural nodularity LEFT lower lobe. A few calcified granulomas. Calcified granulomas and parenchymal scarring RIGHT lower lobe. Calcified nodule along the RIGHT fissure. Nodules relatively stable since 2008. Normal caliber thoracic aorta. Aortic calcification. Coronary calcification. Calcified RIGHT hilar no sharif. No mediastinal or hilar lymphadenopathy. No axillary lymphadenopathy. Adrenal glands are normal. Normal GE junction. Splenic granulomas. No axillary lymphadenopathy. Mild thoracic curve. Mild thora cic kyphosis. CT/CT lung screening [id number] IMPRESSION: LUNG-RADS: 2-Benign Appearance or Behavior FOLLOW UP: 12 Month: Continue annual screening with LDCT
== END 2022-06-05 09:24 | disposition home or self-care (01) ==
LOC: RAD 09:26
PROVIDERS: PCP Family Medicine; Visit Provider Family Medicine
DX: Z12.2 Encounter for screening for malignant neoplasm of respiratory organs (principal); F17.219 Nicotine dependence, cigarettes, with unspecified nicotine-induced disorders
CPT/HCPCS: 71271

== ENCOUNTER → 2022-08-06 13:34 | Outpatient (BNVA) | payer MEDICARE, MEDICAID, SELFPAY | PROVIDERS: PCP Family Medicine; Visit Provider Family Medicine | DX: E78.5 Hyperlipidemia, unspecified (principal) | CPT/HCPCS: 80053; 80061 ==

== ENCOUNTER → 2023-02-04 12:54 | Outpatient (BNVA) | payer MEDICARE, MEDICAID, SELFPAY | PROVIDERS: PCP Family Medicine; Visit Provider Family Medicine | DX: I73.9 Peripheral vascular disease, unspecified (principal); N40.0 Benign prostatic hyperplasia without lower urinary tract symptoms; E78.5 Hyperlipidemia, unspecified | CPT/HCPCS: 80053 ==

== ENCOUNTER → 2023-03-07 13:43 | Outpatient (BNVA) | payer OTHER, SELFPAY | PROVIDERS: PCP Family Medicine; Visit Provider Psychiatry & Neurology Psychiatry | DX: F31.81 Bipolar II disorder (principal); Z79.899 Other long term (current) drug therapy | CPT/HCPCS: 80061; 83036 ==

== ENCOUNTER 2023-06-07 11:41 | Outpatient (CLI) | payer MEDICARE, MEDICAID, SELFPAY ==
[2023-03-29 12:05] VITALS: BP 129/82; BMI 29.3
--- NOTE | 2023-06-07 12:00 | CT_ITS ---
WS: [id number] LDCT LUNG CANCER SCREENING HISTORY: screening TECHNIQUE: Axial imaging performed from the apices to 1 cm below the costophrenic angles. Coronal and sagittal reformats are submitted with axial MIP series. All CT scans at [facility] use at least one of these dose optimization techniques: automated exposure control; mA and/or kV adjustment per patient size (includes targeted exams where dose is matched to clinical indication); or iterativ e reconstruction. DLP: 75.00 mGy.cm DIvol: Mean CTDIvol: 1.50 (mGy) COMPARISON: 06/05/2022, 03/23/2009 Diagnostic quality: Satisfactory Lungs: Pulmonary hyperinflation. Patient has numerous scattered pulmonary nodules throughout both meme gs. Majority of these are calcified or very small caliber with no change since 06/05/2022. Some of thes e nodules were also present in 2008. There are a few fissural nodules also which are stable. No endob ronchial lesions. No pneumonia. Heart: Normal size heart with no pericardial effusion.. Mild coronary artery calcification. Other findings: Atherosclerosis aorta. No adenopathy. Normal sized pulmonary artery. IMPRESSION: CT/CT lung screening [id number] LUNG-RADS: 2-Benign Appearance or Behavior FOLLOW UP: 12 Month: Continue annual screening with LDCT OTHER FINDINGS (S MODIFIER): None.
== END 2023-06-07 11:42 | disposition home or self-care (01) ==
LOC: RAD 11:42
PROVIDERS: PCP Family Medicine; Visit Provider Family Medicine
DX: Z12.2 Encounter for screening for malignant neoplasm of respiratory organs (principal); F17.210 Nicotine dependence, cigarettes, uncomplicated
CPT/HCPCS: 71271

== ENCOUNTER → 2024-03-18 09:05 | Outpatient (BNVA) | payer OTHER, SELFPAY ==
[2023-03-29 12:05] VITALS: BP 129/82; BMI 29.3
== END ==
PROVIDERS: PCP Family Medicine Adult Medicine; Visit Provider Psychiatry & Neurology Psychiatry
DX: F10.20 Alcohol dependence, uncomplicated (principal); F31.81 Bipolar II disorder; F41.1 Generalized anxiety disorder
CPT/HCPCS: 80061; 83036

== ENCOUNTER 2024-04-22 19:46 | Emergency (ER) | payer MEDICARE, SELFPAY ==
[2024-03-26 09:49] VITALS: BP 119/76; BMI 31.5
--- NOTE | 2024-04-22 19:48 | XRR_ITS ---
PROCEDURE INFORMATION: Exam: XR Chest Exam date and time: 04/22/2024 9:00 PM Age: 58 years old Clinical indication: Chest wall pain and left-sided; Additional info: Cp TECHNIQUE: Imaging protocol: Radiologic exam of the chest. Views: 1 view. COMPARISON: CT lung screening [id number] 06/07/2023 11:49 AM FINDINGS: Lungs: Right hilar to lower lobe atelectasis versus infiltrate. Pleural spaces: Unremarkable. No pleural effusion. No pneumothorax. Heart/Mediastinum: Cardiomegaly. Bones/joints: Unremarkable. XR/XR chest 1V portable [id number] IMPRESSION: 1. Right hilar to lower lobe atelectasis versus infiltrate. 2. Cardiomegaly.
[2024-04-22 20:05] VITALS: BP 132/73; PULSE 74; RESP 18; TEMP 36.4; O2SAT 100; BMI 31.8
[2024-04-22 20:44] VITALS: BP 148/81; PULSE 83; RESP 18; O2SAT 94
[2024-04-22 20:46] LABS: Basophils % 0.5 %; Eosinophils # 0.3 10^3/uL (0.0-0.8); Eosinophils % 3.4 %; Hematocrit 38.2 % (37-53); Lymphocytes # 2.9 10^3/uL (0.8-4.8); Lymphocytes % 36.3 %; Mean Corpuscular Hemoglobin 29.2 pg (27-33); Mean Corpuscular Volume 88.4 fl (82-101); Mean Platelet Volume 10.3 fL (7.4-10.4); Monocytes # 0.7 10^3/uL (0.2-0.9); Neutrophils # 3.99 10^3/uL (1.8-7.7); Neutrophils % 50.5 %; Nucleated Red Blood Cells % 0 %; Platelet Count 269 10^3/cmm (157-399); Red Blood Count 4.32 10^6/uL (3.85-5.65); Red Cell Distribution Width 14.2 % (12.1-15.1)
--- NOTE | 2024-04-22 21:06 | W.ED.CHESTPA ---
HPI - Chest Pain General: Chief Complaint: Chest Pain Stated Complaint: Chest Pain , Shortness of breath Time Seen by Provider: 04/22/24 20:29 History of Present Illness: 58-year-old male with a history of peripheral vascular disease on Plavix, alcohol use disorder, tobacco use disorder, hepatitis C, and restless leg syndrome who presents to the emergency room with left lateral chest pain. It is sharp in nature. Intermittent. Has been present since yesterday. Mild cough. No shortness of breath. No abdominal pain. No lower extremity swelling. Vitals are within normal limits on presentation. Related Data Home Medications Medication Instructions Recorded Confirmed aspirin 81 mg chewable tablet 81 mg PO DAILY 01/05/21 04/10/24 acetaminophen 325 mg tablet 650 mg PO Q6H PRN Pain 05/12/21 04/10/24 bisacodyl 5 mg tablet 5 mg PO DAILY PRN Constipation 05/12/21 04/10/24 magnesium hydroxide 400 mg/5 mL 30 ml PO DAILY PRN Constipation 05/12/21 04/10/24 oral suspension (Milk of Magnesia) Previous Rx's Medication Instructions Recorded albuterol sulfate 90 mcg/actuation 2 puff inhalation QID PRN 05/06/23 aerosol inhaler shortness of breath or wheezing #8.5 grams fluticasone 250 mcg-salmeterol 50 See Rx Instructions .Route 09/17/23 mcg/dose blistr powdr for .COMPLEX #60 blisters inhalation hydroxyzine HCl 50 mg tablet 50 mg PO QID PRN insomnia/anxiety 11/14/23 #120 tabs naltrexone 50 mg tablet 50 mg PO DAILY #30 tabs 02/06/24 sertraline 100 mg tablet (Zoloft) 150 mg (1.5 x 100 mg) PO DAILY #45 02/06/24 tabs trazodone 50 mg tablet 100 mg (2 x 50 mg) PO .HS PRN 02/06/24 insomnia #60 tabs varenicline 1 mg tablet 1 mg PO BID #56 tabs 02/06/24 atorvastatin 20 mg tablet 20 mg PO DAILY #90 tabs 04/10/24 budesonide-formoterol HFA 160 2 puff inhalation BID #10.2 grams 04/10/24 mcg-4.5 mcg/actuation aerosol inhaler (Symbicort) cilostazol 100 mg tablet 100 mg PO BID #180 tabs 04/10/24 clopidogrel 75 mg tablet 75 mg PO DAILY #90 tabs 04/10/24 gabapentin 300 mg capsule 300 mg PO TID #240 caps 04/10/24 metoprolol tartrate 25 mg tablet 25 mg PO BID #180 tabs 04/10/24 pantoprazole 40 mg tablet,delayed 40 mg PO DAILY #90 tabs 04/10/24 release (Protonix) tamsulosin 0.4 mg capsule 0.4 mg PO DAILY #90 caps 04/10/24 Allergies Allergy/AdvReac Type Severity Reaction Status Date / Time No Known Allergies Allergy Verified 04/10/24 09:11 Review of Systems Narrative: Constitutional symptoms: Negative except as documented in HPI. Skin symptoms: Negative except as documented in HPI. Eye symptoms: Negative except as documented in HPI. ENMT symptoms: Negative except as documented in HPI. Respiratory symptoms: Negative except as documented in HPI. Cardiovascular symptoms: Negative except as documented in HPI. Gastrointestinal symptoms: Negative except as documented in HPI. Genitourinary symptoms: Negative except as documented in HPI. Musculoskeletal symptoms: Negative except as documented in HPI. Neurologic symptoms: Negative except as documented in HPI. Psychiatric symptoms: Negative except as documented in HPI. Endocrine symptoms: Negative except as documented in HPI. PFSH ED PFSH: Medical History (Updated 04/22/24 @ 22:19 by Jimena Rose MD) Alcohol use disorder, moderate, in sustained remission Tobacco use disorder, moderate, dependence Hepatitis C antibody test positive PAD (peripheral artery disease) Restless leg syndrome Psychiatric care Surgical History S/P peripheral artery angioplasty Family History Mother Diabetes Heart disease Father Cancer esophageal cancer Social History (Updated 04/10/24 @ 09:46 by Iggy Browne MD) Smoking and tobacco/nicotine status: current every day tobacco/nicotine user cigarettes Packs smoked per day: 2 Years cigarettes smoked: 47 [ Other cigarette details: >90 PY, currently 1/4 PPD] Quit status (tobacco/nicotine): not considering quitting Second hand smoke exposure: No Alcohol intake: former Former alcohol use details: severe. last used 2023 Substance/Drug Use: former Former substance use details: MJ, last use 2022 Adopted: No Caregiver/support person: Yes (In home organizer comes 4 days a week 2.5 hours a day. Nurse to set up meds) Lives independently: Yes Household members: none Housing: Apartment Marital status: Number of children: 1 Highest education level completed: 11th Grade service: No Current occupational status: disabled Pets and animals: No Leisure activites: other Leisure activities details: movies Sexually active: Yes How many partners: 0 Are you practicing safe sex: Yes Do you think of yourself as: Straight/Heterosexual Current gender identity: Male Dunia/Orthodox: Protestant [employer] Special dunia needs: No Agree to transfusion: Yes Physical Exam Narrative: EXAM NARRATIVE: General: Alert, no acute distress. Skin: Warm, dry. Head: Normocephalic, atraumatic. Neck: Supple, trachea midline. Eye: Extraocular movements are intact. Ears, nose, mouth and throat: mucosa moist. Cardiovascular: Regular, Normal peripheral perfusion. Respiratory: Lungs are clear to auscultation, respirations are non-labored, breath sounds are equal, Symmetrical chest wall expansion. Gastrointestinal: Soft, Nontender, Non distended Musculoskeletal: Normal ROM, no deformity. Neurological: Alert and oriented, No focal neurological deficit observed. Psychiatric: Cooperative, appropriate mood & affect. Course Vital Signs: Vital signs: Vital Signs Temperature 97.5 F L 04/22/24 20:05 Pulse Rate 82 04/22/24 21:33 Respiratory Rate 18 04/22/24 20:44 Blood Pressure 127/72 04/22/24 21:33 Pulse Oximetry 95 04/22/24 21:33 Oxygen Delivery Me thod Room Air 04/22/24 21:33 MDM - Chest Pain Medical Decision Making Differential diagnosis for patient with chest pain includes but is not limited to and based on the above HPI, review of systems and physical exam: Pneumonia. unstable angina. angina. Acute coronary syndrome / [place]. Pulmonary embolism. Costochondritis / musculoskeletal. Pleurisy. Pericarditis. Esophageal spasm. Pancreatis. Cholecystitis. Orders placed to evaluate differential diagnosis based on the above differential, HPI and physical exam EKG: Time 1950. Rate 80 normal sinus rhythm, No ST-T changes, no ectopy, normal [place] & QRS intervals, This was reviewed and interpreted by myself the ER physician at 1954 Chest x-ray: No acute process. Right sided atelectasis versus infiltrate. Patient's symptoms are on the left. No real increase in cough. I suspect this is atelectasis. No pneumothorax. This was reviewed and interpreted by myself the emergency room physician. I also reviewed the radiology report. Lab Review: Laboratory results were reviewed and interpreted by myself the emergency room physician. No leukocytosis. No anemia. No renal failure. Initial troponin is normal. Patient family and the patient had come back out to the conte and said they were leaving AGAINST MEDICAL ADVICE. I was in the room and a left before I could get a chance to talk with him. Likely would have sent him home after the second troponin but he had signed AMA before I had a chance to speak with him. Apparently they felt they had been in the emergency room too long. Lab Data 04/22/24 20:34 04/22/24 20:34 Radiology Impressions Chest X-Ray 04/22/24 19:48 IMPRESSION: 1. Right hilar to lower lobe atelectasis versus infiltrate. 2. Cardiomegaly. Laboratory Results WBC 7.90 10^3/uL (3.29-11.43) 04/22/24 20:34 RBC 4.32 10^6/uL (3.85-5.65) 04/22/24 20:34 Hgb 12.60 g/dL (11.27-16.99) 04/22/24 20:34 Hct 38.2 % (37-53) 04/22/24 20:34 MCV 88.4 fl (82-101) 04/22/24 20:34 MCH 29.2 pg (27-33) 04/22/24 20:34 MCHC 33.0 g/dL (30-55) 04/22/24 20:34 RDW 14.2 % (12.1-15.1) 04/22/24 20:34 Plt Count 269 10^3/cmm (157-399) 04/22/24 20:34 MPV 10.3 fL (7.4-10.4) 04/22/24 20:34 Neut % (Auto) 50.5 % 04/22/24 20:34 Lymph % (Auto) 36.3 % 04/22/24 20:34 [place] % (Auto) 9.0 % 04/22/24 20:34 Eos % (Auto) 3.4 % 04/22/24 20:34 Baso % (Auto) 0.5 % 04/22/24 20:34 Neut # (Auto) 3.99 10^3/uL (1.8-7.7) 04/22/24 20:34 Lymph # (Auto) 2.9 10^3/uL (0.8-4.8) 04/22/24 20:34 [place] # (Auto) 0.7 10^3/uL (0.2-0.9) 04/22/24 20:34 Eos # (Auto) 0.3 10^3/uL (0.0-0.8) 04/22/24: Baso # (Auto) 0.0 10^3/uL (0.0-0.1) 04/22/24 20:34 Nucleated RBC % (auto) 0 % 04/22/24: Nucleated RBCs # 0.0 /100WBC 04/22/24 20:34 Sodium 138 mmol/L (136-145) 04/22/24 20: Potassium 4.1 mmol/L (3.5-5.1) 04/22/24 20: Chloride 104 mmol/L (98-107) 04/22/24 20: Carbon Dioxide 20 mmol/L (22-29) L 04/22/24: Anion Gap 18.1 (5-19) 04/22/24 20:34 BUN 10 mg/dL (8-23) 04/22/24 20:34 Creatinine 0.9 mg/dL (0.7-1.2) 04/22/24 20: GFR Calculation 86.1 mL/min (90-130) L 04/22/24 20:34 Glucose 89 mg/dL (65-115) 04/22/24 20: Calculated Osmolality 285 mOsm/kg (285-295) 04/22/24: Calcium 9.1 mg/dL (8.5-10.5) 04/22/24 20:34 Total Bilirubin 0.2 mg/dL (0.15-1.2) 04/22/24 20:34 AST 16 U/L (0-40) 04/22/24: ALT 23 U/L (0-41) 04/22/24 20:34 Alkaline Phosphatase 70 U/L (40-130) 04/22/24 20:34 Troponin T Baseline 7 ng/L (0-15) 04/22/24 20:34 NT-Pro-B Natriuret Pep < 36 pg/mL (0-125) 04/22/24 20:34 Total Protein 6.7 g/dL (6.6-8.7) 04/22/24 20:34 Albumin 4.3 g/dL (3.5-5.2) 04/22/24 20:34 Globulin 2.4 g/dL (1.3-4.6) 04/22/24 20:34 Ethyl Alcohol < 10 mg/dL (0-10) 04/22/24 20:34 All radiology interpretation(s) finalized by discharge Discharge Plan Discharge Patient Disposition: Left Against Medical Advice Clinical Impression: Non-cardiac chest pain Condition: Stable Prescriptions: No Action aspirin 81 mg tablet,chewable 81 mg PO DAILY albuterol sulfate 90 mcg/actuation HFA aerosol inhaler 2 puff inhalation QID PRN (Reason: shortness of breath or wheezing) Qty: 8.5 5RF hydroxyzine HCl 50 mg tablet 50 mg PO QID PRN (Reason: insomnia/anxiety) Qty: 120 2RF atorvastatin 20 mg tablet 20 mg PO DAILY Qty: 90 2RF cilostazol 100 mg tablet 100 mg PO BID Qty: 180 1RF clopidogrel 75 mg tablet 75 mg PO DAILY Qty: 90 1RF metoprolol tartrate 25 mg tablet 25 mg PO BID Qty: 180 1RF tamsulosin 0.4 mg capsule 0.4 mg PO DAILY Qty: 90 1RF budesonide-formoterol [Symbicort] 160-4.5 mcg/actuation HFA aerosol inhaler 2 puff inhalation BID Qty: 10.2 2RF gabapentin 300 mg capsule 300 mg PO TID Qty: 240 1RF pantoprazole [Protonix] 40 mg tablet,delayed release (DR/EC) 40 mg PO DAILY Qty: 90 3RF sertraline [Zoloft] 100 mg tablet 150 mg PO DAILY Qty: 45 2RF trazodone 50 mg tablet 100 mg PO .HS PRN (Reason: insomnia) Qty: 60 2RF naltrexone 50 mg tablet 50 mg PO DAILY Qty: 30 2RF varenicline 1 mg tablet 1 mg PO BID Qty: 56 0RF fluticasone propion-salmeterol 250-50 mcg/dose blister with device See Rx Instructions .ROUTE .COMPLEX Qty: 60 5RF Dose Instruction: INHALE 1 PUFF TWICE DAILY Rx Instructions: INHALE 1 PUFF TWICE DAILY acetaminophen 325 mg Tablet 650 mg PO Q6H PRN (Reason: Pain) Milk of Magnesia 400 mg/5 mL Suspension 30 ml PO DAILY PRN (Reason: Constipation) bisacodyl 5 mg Tablet 5 mg PO DAILY PRN (Reason: Constipation) Referrals: Asaf Mae MD [Primary Care Provider] - Discharge Diet: Usual diet Activity Restrictions/Additional Instructions: Thank you for choosing [facility] for your healthcare needs today. Please realize this is an emergency room and that we are providing you with a medical screening exam and this may not be complete and all inclusive of all the testing and or work up that you may need to determine your ailment or severity of your illness. You have been screened and evaluated and felt safe for discharge. Health conditions do change or evolve sometimes and as such it is important that you follow up with your Primary Doctor to be re checked, 3-5 days is a general good time frame for follow up. You are always welcome to return to the ED for re assessment if your symptoms are worsening or you have new concerns Coding Level of Care Code ED Bridge Opener for [place] [place]
[2024-04-22 21:15] LABS: Troponin(5th) Baseline 7 ng/L (0-15)
[2024-04-22 21:17] LABS: Alanine Aminotransferase 23 U/L (0-41); Albumin Level 4.3 g/dL (3.5-5.2); Alkaline Phosphatase 70 U/L (40-130); Anion Gap 18.1 (5-19); Aspartate Amino Transferase 16 U/L (0-40); Blood Urea Nitrogen 10 mg/dL (8-23); Calcium 9.1 mg/dL (8.5-10.5); Carbon Dioxide 20 mmol/L (22-29); Chloride 104 mmol/L (98-107); Creatinine Clr Calc Pharmacy 88.3388; Globulin 2.4 g/dL (1.3-4.6); Glomerular Filtration Rate 86.1 mL/min (90-130); Glucose 89 mg/dL (65-115); NT Pro B Type Natriuretic Pept < 36 pg/mL (0-125); Osmolality Calculated 285 mOsm/kg (285-295); Potassium 4.1 mmol/L (3.5-5.1); Sodium 138 mmol/L (136-145); Total Bilirubin 0.2 mg/dL (0.15-1.2); Total Protein 6.7 g/dL (6.6-8.7)
[2024-04-22 21:33] VITALS: BP 127/72; PULSE 82; O2SAT 95
[2024-04-22 21:59] LABS: Alcohol Level < 10 mg/dL (0-10)
== END 2024-04-22 22:26 | disposition left against medical advice (07) ==
PROVIDERS: Emergency Medicine; Emergency Provider Emergency Medicine; PCP Family Medicine Adult Medicine
DX: R07.89 Other chest pain (principal); F17.210 Nicotine dependence, cigarettes, uncomplicated
CPT/HCPCS: 36415; 71045; 80053; 80307; 83880; 84484; 85025; 99285

== ENCOUNTER → 2024-06-23 14:37 | Outpatient (BNVA) | payer MEDICARE, SELFPAY ==
[2024-03-26 09:49] VITALS: BP 119/76; BMI 31.5
== END ==
PROVIDERS: PCP Family Medicine; Visit Provider Internal Medicine Cardiovascular Disease
DX: I47.10 Supraventricular tachycardia, unspecified (principal); I48.91 Unspecified atrial fibrillation; I49.1 Atrial premature depolarization; I49.3 Ventricular premature depolarization
CPT/HCPCS: 93246

== ENCOUNTER 2025-02-15 11:55 | Outpatient (CLI) | payer MEDICARE, SELFPAY ==
[2024-03-26 09:49] VITALS: BP 119/76; BMI 31.5
[2025-02-15 13:35] LABS: Blood Urea Nitrogen 4 mg/dL (8-23)
== END 2025-02-15 11:56 | disposition home or self-care (01) ==
LOC: RAD 11:56
PROVIDERS: PCP Family Medicine; Visit Provider Family Medicine
DX: Z53.9 Procedure and treatment not carried out, unspecified reason (principal)
CPT/HCPCS: 82565; 84520

== ENCOUNTER 2025-02-22 11:43 | Outpatient (CLI) | payer MEDICARE, SELFPAY ==
[2024-03-26 09:49] VITALS: BP 119/76; BMI 31.5
--- NOTE | 2025-02-22 12:30 | CTR_ITS ---
PROCEDURE INFORMATION: Exam: CTA Abdominal Aorta and Bilateral Lower Extremities (Run-off) With Contrast Exam date and time: 02/22/2025 12:52 PM Age: 59 years old Clinical indication: Loss of dorsalis pedis pulse, patient wasn't very forthcoming about medical history TECHNIQUE: Imaging protocol: Computed tomographic angiography of the of the abdominal aorta, pelvis and bilateral lower extremities with contrast. 3D rendering (Not supervised by radiologist): MIP and/or 3D reconstructed images were created by the technologist. Radiation optimization: All CT scans at this facility use at least one of these dose optimization techniques: automated exposure control; mA and/or kV adjustment per patient size (includes targeted exams where dose is matched to clinical indication); or iterative reconstruction. Contrast material: OMNIPAQUE 350; Contrast volume: 125 ml; Contrast route: INTRAVENOUS (IV); COMPARISON: CT angio abd aorta runof [id number] 05/12/2021 6:49 PM RADIATION DOSE METRICS: Total DLP (mGy-cm): 1622.51 FINDINGS: Aorta: Stable moderate calcified and noncalcified plaque in the abdominal aorta. Celiac and mesenteric arteries: Mild calcified and noncalcified plaque at the origin of the celiac artery. 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 The remainder of the celiac artery, superior mesenteric artery, and inferior mesenteric artery are unremarkable. 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 Mild calcified plaque at the origin of both renal arteries and the left renal artery. Right iliac arteries: Arterial stent in the right common iliac artery is patent. Stable moderate calcified plaque. Right femoral/popliteal arteries: There has been interval removal of a right femoral-popliteal arterial graft just below the level of the right groin. Remaining graft material in the right groin with moderate amount of noncalcified plaque and up to 50% stenosis in multiple areas (series 5, images 390-427). Stable extensive calcification with chronic occlusion along the length of the right femoral artery and proximal right popliteal artery. The right popliteal artery is reconstituted via collaterals at the level of the knee joint. 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 Right infrapopliteal arteries: Moderate calcified plaque in the tibioperoneal trunk and along the length of the right posterior tibial artery. The right anterior tibial and peroneal arteries are visualized to the level of the ankle joint. Single-vessel runoff to the right foot via the right posterior tibial artery. Left iliac arteries: Stable moderate to severe calcified plaque. Arterial stent in the left common iliac artery and the proximal left external iliac artery. The stent is now occluded along its length with occlusion extending into the proximal left internal iliac artery and the mid left external iliac artery. The left external and internal iliac arteries are then reconstituted via collaterals (series 5, images 245-375). Left femoral/popliteal arteries: Stable changes consistent with a previous left common femoral-popliteal bypass. The graft is patent. Stable noncalcified plaque with 50% stenosis in the proximal left popliteal artery. Stable extensive calcified plaque with greater than 90% stenosis in the mid left popliteal artery. Left infrapopliteal arteries: Extensive calcified plaque with greater than 90% stenosis in the tibioperoneal trunk. Mild calcified plaque along the length of the left popliteal artery. The left anterior tibial artery is visualized to the distal left lower leg and the left peroneal artery is visualized to the left Single-vessel runoff to the left foot via the left posterior tibial artery. Lungs: Dependent atelectasis in the lungs bilaterally. Calcified and partially calcified granulomas in the right lower lobe. Pleural spaces: No pleural effusion. Heart: Visualized heart is normal in size. Coronary arteries: Moderate atherosclerotic calcification in the visualized coronary arteries. Liver: The liver is unremarkable. Gallbladder and biliary ducts: The gallbladder is unremarkable. No biliary ductal dilatation. Pancreas: The pancreas is unremarkable. No pancreatic ductal dilatation. Spleen: Heterogenous enhancement of the spleen, likely due to phase of contrast enhancement. Stable calcified granuloma in the spleen. Adrenal glands: The right and left adrenal glands are unremarkable. Kidneys and ureters: The right and left kidneys are unremarkable. The right and left ureters are unremarkable. Stomach and bowel: Fatty infiltration of the wall of the stomach and colon. Findings suggest sequela of chronic inflammation. No acute abnormality in the stomach, small bowel, or colon. Appendix: The appendix is visualized and is unremarkable. No findings to suggest acute appendicitis. Urinary bladder: The bladder is unremarkable. Reproductive: Stable mild enlargement of the prostate gland. Stable nonspecific parenchymal calcifications in the prostate gland. Intraperitoneal space: No free intraperitoneal air. No ascites. No abscess. Lymph nodes: No lymphadenopathy. Bones/joints: Degenerative changes in the spine and hips. Soft tissues: No acute abnormality in the visualized soft tissues. CT/CT angio abd aorta runof [id number] IMPRESSION: 1. Arterial stent in the left common iliac artery and the proximal left external iliac artery. The stent is occluded along its length with occlusion extending into the proximal left internal iliac artery and the mid left external iliac artery. Crit is it of this finding is uncertain, however findings are new compared with 05/12/2021. The left external and internal iliac arteries are then reconstituted via collaterals. 2. 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 3. Extensive atherosclerotic disease. Greater than 90% stenosis in the mid left popliteal artery. 50% stenosis in the proximal left popliteal artery. 4. Single-vessel runoff to the right and left feet via the posterior tibial arteries. 5. There has been interval removal of a right femoral-popliteal arterial graft just below the level of the right groin. Remaining graft material in the right groin with moderate amount of noncalcified plaque and up to 50% stenosis in multiple areas. 6. Stable chronic occlusion along the length of the right femoral artery and proximal right popliteal artery. The right popliteal artery is reconstituted via collaterals at the level of the knee joint. 7. Stable changes consistent with a previous left common femoral-popliteal bypass. The graft is patent. 8. 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 9. 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 10. 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 11. Incidental/nonacute findings are listed in the report.
[2025-02-22] MEDS: iohexol 350 mg/mL 500 mL Btl (per mL) IV (13:05)
== END 2025-02-22 11:44 | disposition home or self-care (01) ==
LOC: RAD 11:43
PROVIDERS: PCP Family Medicine; Visit Provider Family Medicine
DX: I70.212 Atherosclerosis of native arteries of extremities with intermittent claudication, left leg (principal); Z95.820 Peripheral vascular angioplasty status with implants and grafts; I72.4 Aneurysm of artery of lower extremity; I25.10 Atherosclerotic heart disease of native coronary artery without angina pectoris; S85.16 Unspecified injury of posterior tibial artery; X58.XXXA Exposure to other specified factors, initial encounter; I70.311 Atherosclerosis of unspecified type of bypass graft(s) of the extremities with intermittent claudication, right leg; I70.92 Chronic total occlusion of artery of the extremities; I77.4 Celiac artery compression syndrome; Q27.2 Other congenital malformations of renal artery; R93.7 Abnormal findings on diagnostic imaging of other parts of musculoskeletal system; N40.0 Benign prostatic hyperplasia without lower urinary tract symptoms
CPT/HCPCS: 75635

== ENCOUNTER → 2025-03-11 12:49 | Outpatient (BNVA) | payer OTHER, SELFPAY ==
[2024-03-26 09:49] VITALS: BP 119/76; BMI 31.5
== END ==
PROVIDERS: PCP Family Medicine; Visit Provider Nurse Practitioner Psychiatric/Mental Health
DX: F33.2 Major depressive disorder, recurrent severe without psychotic features (principal); F41.1 Generalized anxiety disorder; F10.21 Alcohol dependence, in remission
CPT/HCPCS: 80061; 83036

== ENCOUNTER 2025-03-15 19:43 | Emergency (ER) | payer MEDICARE, MEDICAID, SELFPAY ==
[2024-03-26 09:49] VITALS: BP 119/76; BMI 31.5
[2025-03-15 19:50] VITALS: BP 116/71; PULSE 93; RESP 22; TEMP 37; O2SAT 96; BMI 31.3
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
--- OUTSIDE RECORDS SUMMARY | 2025-03-15 19:56 | XMS_ITS | Clinical Summary ---
Author Organization [facility] Address [address] [facility] [address] [place] [address] Phone Care Team Providers Care Professor Criminal Justice Name Role Phone Unavailable Primary Care Provider Unavailabl e Allergies Active Allergy Reactions Criticality Noted Date Comments Aspirin Abdominal Pain High 12/17/2014 Bacitracin Hives High 12/17/2014 Medications HYDROcodone-acet aminophen (NORCO) 10-325 mg Tablet Take 1 Tablet by mouth every 4 hours as needed for Pain, Moderate. Active gabapentin (NEURONTIN) 300 mg capsule Take 300 mg by mouth 3 times daily. 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 Gender Identity Not on file Sexual Orientation Not on file Last Filed Vital Signs Vital Sign Reading Time Taken Comments Blood Pressure 140/80 12/17/2014 10:26 PM CDT Pulse - - Temperature 36.7 C (98.1 F) 12/17/2014 10:26 PM CDT Respiratory Rate 18 12/17/2014 10:26 PM CDT Oxygen Saturation 96% 12/17/2014 10:26 PM CDT Inhaled Oxygen Concentration - - Weight 73.7 kg (162 lb 6.4 oz) 12/17/2014 9:44 P M CDT Height 180.3 cm (5' 11 ) 12/17/2014 9:44 PM CDT Body Mass Index 22.65 12/17/2014 9:44 PM CDT Plan of Treatment Health Maintenance Due Date Last Done Comments DTAP/TDAP/TD VACCINES (1 - Tdap) 1982 COLORECTAL SCREENING 2008 Colorectal Cancer Screening 2008 FIT-DNA Q 3 years 2008 FIT/FOBT Q 1 year 2008 Flex Sig/CT Colonography Q 5 years 2008 ZOSTER VACCINE (1 of 2) 2013 INFLUENZA VACCINE (#1) 2024 RSV VACCINE (60+ or ) (1 - 1-dose 75+ series) [address] [place] [address] MEDICARE PART A AND B
--- NOTE | 2025-03-15 20:06 | USR_ITS ---
PROCEDURE INFORMATION: Exam: US Duplex Left Lower Extremity Veins, Limited Exam date and time: 03/15/2025 8:47 PM Age: 59 years old Clinical indication: Pain; Leg, upper and leg, lower; Prior surgery; Surgery date: 6+ months; Surgery type: Left fem-pop bpg 2010. History of pad S/P left fem-pop bypass graft 2010. ; Additional info: Pale, cool, painful lle for months, worsening today TECHNIQUE: Imaging protocol: Real-time duplex ultrasound of the left extremity with 2-D felix scale, color Doppler flow and spectral waveform analysis including responses to compression and other maneuvers (when performed) with image documentation. Limited exam focused on the left lower extremity veins. COMPARISON: CT angio abd aorta runof [id number] 02/22/2025 12:52 PM FINDINGS: Left deep veins: The left common femoral, femoral, proximal profunda femoral, popliteal, peroneal and posterior tibial veins are patent without thrombus. Normal Doppler waveforms. Normal compressibility and/or augmentation response. Superficial veins: Greater saphenous vein at the saphenofemoral junction is patent without thrombus. Soft tissues: Unremarkable. US/[place] [id number] IMPRESSION: No evidence of deep vein thrombosis.
--- NOTE | 2025-03-15 20:06 | USR_ITS ---
PROCEDURE INFORMATION: Exam: US Duplex Left Lower Extremity Arteries Or Arterial Bypass Grafts Exam date and time: 03/15/2025 9:05 PM Age: 59 years old Clinical indication: Pain; Leg, upper and leg, lower; Prior surgery; Surgery date: 6+ months; Surgery type: 2010 left fem-pop bypass graft; Additional info: Pale, cool, painful lle for months, worsening today TECHNIQUE: Imaging protocol: Left Real-time duplex scan of the arteries or arterial bypass grafts of the left lower extremity with 2-D felix scale, color Doppler flow and spectral waveform analysis. Images documented and saved. COMPARISON: [place] [id number] 03/15/2025 8:47 PM FINDINGS: Left common femoral artery: Common femoral artery peak systolic velocity is 28 cm/sec. Waveform is multiphasic. Left superficial femoral artery: There is a left fem-pop bypass graft. The proximal portion of the fem-pop bypass graft has a peak systolic velocity of 15 cm/sec, the midportion has 11 cm/sec and distal has a velocity of 12 cm/sec. Monophasic waveform is noted. Left popliteal artery: The left popliteal artery peak systolic velocities 36 cm/sec and is monophasic waveform. Left calf/foot arteries: Peak systolic velocity in the left posterior tibial artery is 32 cm/sec with monophasic flow. The left dorsalis pedis artery could not be visualized and is likely occluded. Other arteries: Profunda femoris artery is occluded. Other findings: Diffuse dampening of the flow. External iliac artery peak systolic velocities range from 29-34 cm/sec. US/[place] [id number] IMPRESSION: 1. Severe inflow disease with dampened waveform in the external iliac arteries which indicates high-grade occlusion or stenosis proximal to this level.. 2. Severely dampened flow in the fem-pop bypass graft with monophasic waveforms indicating severe disease and impending occlusion can not be excluded, recommend stat vascular surgery consult. 3. 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
--- NOTE | 2025-03-15 20:15 | W.ED.EXTPRO ---
HPI - Extremity Problem General: Chief complaint: Extremity Injury, Lower Stated complaint: LT leg turning purple, pulmanary artery disease Time Seen by Provider: 03/15/25 19:58 Source: patient and family Mode of arrival: ambulatory Limitations: no limitations History of Present Illness: Patient is a 59-year-old male with past medical history of peripheral artery disease and tobacco use disorder presenting to the emergency department complaining of worsening pain to left lower extremity. Patient and family note that for the past few months the patient's left lower extremity has become increasingly purpleish, painful, and and cool to the touch. Patient has a vascular surgeon in [place], who is set to see soon to discuss possible amputation due to the history of peripheral artery disease that is advanced. There is a history of DVT and back in 2010 was diagnosed with this, the patient is chronically anticoagulated on Plavix. Patient here to rule out any new occlusion, he is not endorsing any chest pain or shortness of breath. Has been using [id number] pain medications for pain relief, states that the last thing that helped with pain like this was Demerol. He did have a fall yesterday, but states this is not what caused his pain. MD Complaint: extremity pain Onset (ago): month(s) Pain Consistency: constant Location: left and lower extremity Associated symptoms: Deny chest pain, fever(s) or rash Related Data Home Medications ?Medication ?Instructions ?Recorded ?Confirmed aspirin 81 mg chewable tablet 81 mg PO DAILY 01/05/21 03/11/25 acetaminophen 325 mg tablet 650 mg PO Q6H PRN Pain 05/12/21 03/11/25 hydrocodone 5 mg-acetaminophen 325 1 tab PO Q6H PRN 01/19/25 03/11/25 mg tablet Previous Rx's ?Medication ?Instructions ?Recorded fluticasone 250 mcg-salmeterol 50 See Rx Instructions .Route 09/17/23 mcg/dose blistr powdr for .COMPLEX #60 blisters inhalation atorvastatin 20 mg tablet 20 mg PO DAILY #90 tabs 10/05/24 pantoprazole 40 mg tablet,delayed 40 mg PO DAILY #90 tabs 10/05/24 release (Protonix) tamsulosin 0.4 mg capsule 0.4 mg PO DAILY #90 caps 10/05/24 metoprolol tartrate 25 mg tablet 50 mg (2 x 25 mg) PO BID #180 tabs 01/04/25 varenicline tartrate 1 mg tablet 1 mg PO BID #56 tabs 01/13/25 hydroxyzine HCl 50 mg tablet 50 mg PO BID PRN anxiety #60 tabs 01/19/25 sertraline 100 mg tablet 200 mg (2 x 100 mg) PO DAILY #60 01/19/25 tabs trazodone 100 mg tablet See Rx Instructions PO .HS PRN 01/19/25 insomnia #90 tabs albuterol sulfate 90 mcg/actuation 2 puff inhalation QID PRN 02/04/25 aerosol inhaler shortness of breath or wheezing #8.5 grams budesonide-formoterol HFA 160 2 puff inhalation BID #10.2 grams 02/04/25 mcg-4.5 mcg/actuation aerosol inhaler (Symbicort) cilostazol 100 mg tablet 100 mg PO BID #180 tabs 03/04/25 clopidogrel 75 mg tablet 75 mg PO DAILY #90 tabs 03/04/25 gabapentin 300 mg capsule 300 mg PO TID #240 caps 03/10/25 Allergies Allergy/AdvReac Type Severity Reaction Status Date / Time No Known Allergies Allergy Verified 03/11/25 11:47 Review of Systems General: Reports: 10 or more systems reviewed and unremarkable except in HPI and below Const: Denies: fever(s), chills or fatigue Eyes: Denies: change in vision ENMT: Denies: throat pain, ear or mastoid pain or nasal discharge Card: Denies: chest pain, palpitations, swelling of feet/ankles or lightheadedness Resp: Denies: dyspnea, productive cough or wheezing GI: Denies: abdominal pain, nausea, vomiting, diarrhea or constipation : Denies: flank pain, difficulty urinating, dysuria or urinary frequency Musc: Reports: extremity pain (LLE) and other (LLE coolness, color changes); Denies: neck pain, back pain or joint pain Skin/Breast: Denies: rash Neuro: Denies: headache(s) PFSH ED PFSH: Medical History Alcohol use disorder, severe, in early remission, dependence Alcohol use disorder, moderate, in sustained remission Tobacco use disorder, moderate, dependence Hepatitis C antibody test positive PAD (peripheral artery disease) Restless leg syndrome Psychiatric care Surgical History S/P peripheral artery angioplasty Family History Mother Diabetes Heart disease Father Cancer esophageal cancer Social History Smoking and tobacco/nicotine status: current every day tobacco/nicotine user cigarettes Packs smoked per day: 0.5 Years cigarettes smoked: 48 [ Other cigarette details: >90 PY, currently 1/2 ppd ] Quit status (tobacco/nicotine): considering quitting Second hand smoke exposure: Yes Alcohol intake: former Former alcohol use details: severe. last used 2023 Substance/Drug Use: former Former substance use details: MJ, last use 2022 Adopted: No Caregiver/support person: Yes (In home economics extension worker comes 4 days a week 2.5 hours a day. Nurse to set up meds) Lives independently: Yes Household members: none Housing: Other Details: I bought a cabin and turned it into a house - I think he means a shed Marital status: Marital status details: for 3 years - Has been 4 wives Number of children: 1 Number of grandchildren: 0 Highest education level completed: 11th Grade service: No Current occupational status: disabled Current occupational exposures/hazards: No Pets and animals: Yes (Inside ) Pets & animals: cat(s) Leisure activites: music Sexually active: No Do you think of yourself as: Straight/Heterosexual Current gender identity: Male Dunia/Latter Day: Baptism [employer] Special dunia needs: No Agree to transfusion: Yes Physical Exam Const: COMMON NORMALS: no acute distress, patient oriented x3 and no limitations GENERAL APPEARANCE: cooperative, comfortable and well developed ORIENTATION/CONSCIOUSNESS: Yes awake, Yes oriented to person, Yes oriented to place and Yes oriented to time Neck/C-Spine: COMMON NORMALS: full ROM, supple and no JVD Resp: COMMON NORMALS: normal respiratory effort, No retractions, No use of accessory muscles and clear to auscultation bilaterally AUSCULTATION: clear to auscultation bilaterally Cardio: COMMON NORMALS: no JVD, regular rate, regular rhythm, No clicks present (Cardio), No murmurs present (Cardio) and No rub (Cardio) RATE: regular rate RHYTHM: regular rhythm Extremity: NARRATIVE EXTREMITY EXAM: His bilateral lower extremities are mildly cool to the touch, there is no significant difference between the left lower and right lower extremity here. 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 There is slowed cap refill bilaterally. No skin mottling, bilaterally pale. Full range of motion, no signs of trauma. Neuro: COMMON NORMALS: patient oriented x3, moves all extremities, no focal motor deficits and no sensory deficits noted SENSORIUM/ORIENTATION: Yes oriented to person, Yes oriented to place and Yes oriented to time Course Vital Signs: Vital signs: Vital Signs Temperature 98.6 F 03/15/25 19:50 Pulse Rate 91 03/15/25 23:02 Respiratory Rate 16 03/15/25 22:00 Blood Pressure 120/74 03/15/25 23:02 Pulse Oximetry 93 03/15/25 23:02 MDM - Extremity (Nontraumatic) Medical Decision Making Patient presented for acute on chronic left lower extremity pain, purpleish nests, and coolness he has a history of extensive peripheral artery disease he sees vascular surgery in [place] and has had previous consultations with vascular surgery team a possible amputation being if his condition worsens. Here there is bilateral difficulty to palpate his distal pulses, there is no difference in coolness or pallor between the 2 legs. He has good movement of the feet and sensations are symmetrical and intact. On top of this he just appeared clinically in no acute distress, vital stable. He was given [place] for pain which did relieve his pain. Blood work obtained unremarkable, on his arterial duplex lower extremity on the left there is severe inflow disease and severe dampened flow to the femoropopliteal bypass graft and there could not be ruled out any impending occlusion. For this finding, and likely that it is chronic and that this is an acute on chronic situation, I spoke to Dr. Rodriguez with vascular surgery at [place] who states that being he has had symptoms for 4 months but this is likely chronic and in no need for emergent transfer for vascular surgery. He also has an appointment in the next few days and he is encouraged to attend this as this is an appropriate timeline for follow-up. In the meantime if he is to worsen with symptoms in the next 24 to 48 hours he is told to return to the ED for reevaluation and likely transfer at that time. Patient is comfortable with this plan. Lab Data 03/15/25 20:22 03/15/25 20:22 Radiology Impressions Duplex Scan Lower Extremity Artery 03/15/25 20:06 IMPRESSION: 1. Severe inflow disease with dampened waveform in the external iliac arteries which indicates high-grade occlusion or stenosis proximal to this level.. 2. Severely dampened flow in the fem-pop bypass graft with monophasic waveforms indicating severe disease and impending occlusion can not be excluded, recommend stat vascular surgery consult. 3. 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 ADDENDUM: 03/15/254 THIS REPORT CONTAINS FINDINGS THAT MAY BE CRITICAL TO PATIENT CARE. The findings were verbally communicated via telephone conference with TARIQ Basurto at 10:26 PM FOLDER SEAMER on 03/15/2025. The findings were acknowledged and understood. Venous Duplex 03/15/25 20: IMPRESSION: No evidence of deep vein thrombosis. Laboratory Results WBC 8.83 10^3/uL (3.29-11.43) 03/15/25 20: RBC 4.78 10^6/uL (3.85-5.65) 03/15/25 20:22 Hgb 13.70 g/dL (11.27-16.99) 03/15/25 20:22 Hct 41.1 % (37-53) 03/15/25 20:22 MCV 86.0 fl (82-101) 03/15/25 20:22 MCH 28.7 pg (27-33) 03/15/25 20: MCHC 33.3 g/dL (30-55) 03/15/25 20:22 RDW 16.0 % (12.1-15.1) H 03/15/25 20:22 Plt Count 259 10^3/cmm (157-399) 03/15/25 20: MPV 10.5 fL (7.4-10.4) H 03/15/25 20:22 Neut % (Auto) 47.6 % 03/15/25 20:22 Lymph % (Auto) 37.4 % 03/15/25 20:22 [place] % (Auto) 11.4 % 03/15/25 20: Eos % (Auto) 2.7 % 03/15/25 20:22 Baso % (Auto) 0.7 % 03/15/25 20:22 Neut # (Auto) 4.20 10^3/uL (1.8-7.7) 03/15/25 20: Lymph # (Auto) 3.3 10^3/uL (0.8-4.8) 03/15/25 20:22 [place] # (Auto) 1.0 10^3/uL (0.2-0.9) H 03/15/25 20:22 Eos # (Auto) 0.2 10^3/uL (0.0-0.8) 03/15/25 20: Baso # (Auto) 0.1 10^3/uL (0.0-0.1) 03/15/25 20: Nucleated RBC % (auto) 0 % 03/15/25 20: Nucleated RBCs # 0.0 /100WBC 03/15/25 20: PT 12.20 SECONDS (12.1-14.9) 03/15/25 20: INR 0.84 (0.8-1.2) 03/15/25 20: APTT 27.5 SECONDS (23.9-36.7) 03/15/25 20:22 Sodium 141 mmol/L (136-145) 03/15/25 20: Potassium 4.0 mmol/L (3.5-5.1) 03/15/25 20: Chloride 103 mmol/L (98-107) 03/15/25 20: Carbon Dioxide 24 mmol/L (22-29) 03/15/25 20: Anion Gap 18.0 (5-19) 03/15/25 20:22 BUN 10 mg/dL (8-23) 03/15/25 20: Creatinine 1.0 mg/dL (0.7-1.2) 03/15/25 20: GFR Calculation 76.0 mL/min (90-130) L 03/15/25 20:22 Glucose 77 mg/dL (65-115) 03/15/25 20:22 Calculated Osmolality 290 mOsm/kg (285-295) 03/15/25 20: Calcium 9.2 mg/dL (8.5-10.5) 03/15/25 20:22 Total Bilirubin 0.2 mg/dL (0.15-1.2) 03/15/25 20:22 AST 19 U/L (0-40) 03/15/25 20:22 ALT 22 U/L (0-41) 03/15/25 20:22 Alkaline Phosphatase 81 U/L (40-130) 03/15/25 20:22 Total Protein 6.8 g/dL (6.6-8.7) 03/15/25 20:22 Albumin 4.2 g/dL (3.5-5.2) 03/15/25 20:22 Globulin 2.6 g/dL (1.3-4.6) 03/15/25 20:22 All radiology interpretation(s) finalized by discharge Discharge Plan Discharge Patient Disposition: Home Clinical Impression: PAD (peripheral artery disease) Condition: Stable Prescriptions: No Action aspirin 81 mg tablet,chewable 81 mg PO DAILY tamsulosin 0.4 mg capsule 0.4 mg PO DAILY Qty: 90 1RF pantoprazole [Protonix] 40 mg tablet,delayed release (DR/EC) 40 mg PO DAILY Qty: 90 3RF atorvastatin 20 mg tablet 20 mg PO DAILY Qty: 90 2RF budesonide-formoterol [Symbicort] 160-4.5 mcg/actuation HFA aerosol inhaler 2 puff inhalation BID Qty: 10.2 2RF albuterol sulfate 90 mcg/actuation HFA aerosol inhaler 2 puff inhalation QID PRN (Reason: shortness of breath or wheezing) Qty: 8.5 5RF hydrocodone-acetaminophen 5-325 mg tablet 1 tab PO Q6H PRN trazodone 100 mg tablet See Rx Instructions PO .HS PRN (Reason: insomnia) Qty: 90 2RF Rx Instructions: Take up to three tablets at bedtime, if needed for insomnia sertraline 100 mg tablet 200 mg PO DAILY Qty: 60 2RF Rx Instructions: Take two tablets by mouth every morning; stop other doses of this medication hydroxyzine HCl 50 mg tablet 50 mg PO BID PRN (Reason: anxiety) Qty: 60 2RF Rx Instructions: Take one tablet by mouth up to twice a day, if needed for anxiety, at least 4 hours apart fluticasone propion-salmeterol 250-50 mcg/dose blister with device See Rx Instructions .ROUTE .COMPLEX Qty: 60 5RF Dose Instruction: INHALE 1 PUFF TWICE DAILY Rx Instructions: INHALE 1 PUFF TWICE DAILY metoprolol tartrate 25 mg tablet 50 mg PO BID Qty: 180 1RF varenicline tartrate 1 mg tablet 1 mg PO BID Qty: 56 0RF Rx Instructions: Take one tablet by mouth morning and evening clopidogrel 75 mg tablet 75 mg PO DAILY Qty: 90 1RF cilostazol 100 mg tablet 100 mg PO BID Qty: 180 1RF gabapentin 300 mg capsule 300 mg PO TID Qty: 240 1RF acetaminophen 325 mg Tablet 650 mg PO Q6H PRN (Reason: Pain) Discharge Orders: Discharge ED (Routine); Ordered 03/15/25 Ordered By: Chadwick Watters Referrals: Iggy Browne MD [Primary Care Provider, [facility]] Patient Instructions: Peripheral Artery Disease (ED), Patient Portal & [facility] Instructions Activity Restrictions/Additional Instructions: Your ultrasound today confirms presence of peripheral artery disease of which you have been previously diagnosed with. No significant worsening today that would require emergent transfer to vascular surgery as I spoke to on-call vascular surgeon at [place] in [place]. You are to follow-up to your regularly scheduled appointment in the next couple of days, please return with any paralysis of your lower extremities or inability to move your feet. At this time stable for discharge home, please follow-up as warranted. Print Language: Bolivian Coding Level of Care Code ED Energy Project Manager for [facility]
[2025-03-15] MEDS: HYDROcodone-acetaminophen 7.5-325 mg Tablet 1 TAB PO (20:20)
[2025-03-15 20:38] VITALS: BP 123/68; PULSE 91; RESP 16; O2SAT 93
[2025-03-15 20:39] LABS: Hematocrit 41.1 % (37-53); Hemoglobin 13.70 g/dL (11.27-16.99); Mean Corpuscular HGB Conc 33.3 g/dL (30-55); Mean Corpuscular Hemoglobin 28.7 pg (27-33); Mean Corpuscular Volume 86.0 fl (82-101); Nucleated Red Blood Cells % 0 %; Platelet Count 259 10^3/cmm (157-399); Red Blood Count 4.78 10^6/uL (3.85-5.65); White Blood Count 8.83 10^3/uL (3.29-11.43)
[2025-03-15 20:55] LABS: Alanine Aminotransferase 22 U/L (0-41); Albumin Level 4.2 g/dL (3.5-5.2); Alkaline Phosphatase 81 U/L (40-130); Anion Gap 18.0 (5-19); Aspartate Amino Transferase 19 U/L (0-40); Blood Urea Nitrogen 10 mg/dL (8-23); Calcium 9.2 mg/dL (8.5-10.5); Carbon Dioxide 24 mmol/L (22-29); Chloride 103 mmol/L (98-107); Globulin 2.6 g/dL (1.3-4.6); Glucose 77 mg/dL (65-115); INR 0.84 (0.8-1.2); Osmolality Calculated 290 mOsm/kg (285-295); Potassium 4.0 mmol/L (3.5-5.1); Prothrombin Time 12.20 SECONDS (12.1-14.9); Sodium 141 mmol/L (136-145); Total Protein 6.8 g/dL (6.6-8.7)
[2025-03-15 20:57] LABS: Partial Thromboplastin Time 27.5 SECONDS (23.9-36.7)
[2025-03-15 21:00] VITALS: BP 124/70; PULSE 90; RESP 16; O2SAT 93
[2025-03-15 22:00] VITALS: BP 130/69; PULSE 87; RESP 16; O2SAT 93
--- NOTE | 2025-03-15 22:19 | PC.NURSE ---
Assumed Pt. care at [id number]
[2025-03-15] MEDS: HYDROcodone-acetaminophen 7.5-325 mg Tablet 2 TAB PO (22:59)
[2025-03-15 23:02] VITALS: BP 120/74; PULSE 91; O2SAT 93
== END 2025-03-15 23:05 | disposition home or self-care (01) ==
PROVIDERS: Emergency Provider Physician Assistant; PCP Family Medicine
DX: I73.9 Peripheral vascular disease, unspecified (principal); Z79.82 Long term (current) use of aspirin; Z79.02 Long term (current) use of antithrombotics/antiplatelets; F17.210 Nicotine dependence, cigarettes, uncomplicated
CPT/HCPCS: 36415; 80053; 85025; 85610; 85730; 93926; 93971; 99284; J9999